=== PATIENT | male | born 1960 | race Caucasian/White ===

== ENCOUNTER 2016-10-01 06:06 | Day surgery (SDC) | payer MEDICARE ==
[~2016-10-01 06:06] MED LIST: Lactated Ringers 1,000 ML IV SCH
[2016-10-01] MEDS ORDERED: Ketamine HCl 50 MG/ML IV ONE (06:07)
[2016-10-01] MEDS ORDERED: DIPRIVAN 200 MG/20 ML IV ONE (06:07)
--- NOTE | 2016-10-01 08:56 | OP ---
SURGERY DATE/TIME: 10/01/2016815 PREOPERATIVE DIAGNOSIS: Screening exam. POSTOPERATIVE DIAGNOSIS: Normal colon. PROCEDURE: Colonoscopy. SURGEON: Dr. Woodson. ANESTHESIA: Medications given by anesthesia department. HISTORY: The patient is a 56 year-old white male patient presenting now for colonoscopic examination for surveillance. He previously had a colonoscopy seven years ago which had polyps. The patient was reappraised of the risks of the procedure including the risk of perforation, phlebitis, untoward reaction to medication, bleeding and missed lesions. The patient verbalized her understanding and desired to have the procedure performed. DESCRIPTION OF PROCEDURE: The patient was given the medications by the anesthesia department. He had continuous pulse oximetry, ECG monitoring, intermittent blood pressure monitoring and tidal CO2 monitoring during the examination. He was placed in the left lateral decubitus position. A digital rectal examination was performed and revealed normal anal sphincter tone and no masses and normal prostate. The flexible Olympus pediatric colonoscope was used to intubate the rectum. A view of the colon was developed sequentially to the cecum. Upon insertion and withdrawal, including a retroflex view in the rectum, no mucosal lesions were encountered. The scope was removed from the patient who tolerated the procedure well and was sent back to OP recovery in good condition. The prep was noted to be fair to good.
[2016-10-01 09:39] VITALS: BP 131/60; PULSE 56; O2SAT 98
== END 2016-10-01 09:41 | disposition home or self-care (01) ==
LOC: SDC 06:06
PROVIDERS: ATTEND Family Medicine
PROC: 0DJD8ZZ Inspection of Lower Intestinal Tract, Via Natural or Artificial Opening Endoscopic (ICD-10-PCS; principal; 2016-10-01)
DX: Z12.11 Encounter for screening for malignant neoplasm of colon (principal); Z86.010 Personal history of colon polyps
CPT/HCPCS: 00810; J2704

== ENCOUNTER 2018-05-22 15:49 | Emergency (ER) | payer MEDICARE ==
--- NOTE | 2018-05-22 16:47 | ERPHSYRPT ---
- History of Present Illness Time Seen by Provider: 05/22/18 16:37 Historian: patient Exam Limitations: no limitations Patient Subjective Stated Complaint: Pt states "I have been having lower right abdominal pain and diarrhea since last friday. I went to Dr. Douglas office today and they checked me out and wanted to do a CT but after they called my insurance company they said I should just go to the ED." Triage Nursing Assessment: PT presented alert and oriented X 3, skin pwd. PT ambulates with an upright steady gait, able to speak in clear full sentences. pt in no apparent respiratory distress. Physician History: 58-year-old white male with history of COPD, myocardial infarction, rheumatoid arthritis, Patient arrives with complaint of right lower quadrant painand epigastric pain and diarrhea symptoms since Friday he states he has not been having vomiting he does state she's been having multiple episodes of diarrhea. Past medical history includes COPD, myocardial infarction, rheumatoid arthritis , patient states he only has one kidney. Past surgical history includes bifemoral bypass. Social history is negative. Timing/Duration: week(s) (1 week) Activities at Onset: none Quality: aching, cramping Abdominal Pain Onset Location: RLQ, epigastric Severity of Pain-Max: moderate Severity of Pain-Current: mild Modifying Factors: Improves With: nothing Associated Symptoms: diarrhea, No back, No chest pain, No diaphoresis, No fever/ chills, No fatigue, No headache, No heartburn, No loss of appetite, No nausea, No neck pain, No rash, No shortness of breath, No syncope, No testicular pain, No vomiting, No weakness Previous symptoms: no prior history Allergies/Adverse Reactions: acetaminophen [From Vicodin] Allergy (Severe, Verified 09/30/16 14:38) Rash hydrocodone [From Vicodin] Allergy (Severe, Verified 09/30/16 14:38) Rash oxycodone [From Percocet] Allergy (Severe, Verified 09/30/16 14:38) Rash Sulfa (Sulfonamide Antibiotics) Allergy (Severe, Verified 09/30/16 14:38) Rash Home Medications: Aspirin 81 gm Chew [Baby Aspirin 81 mg Chew] 81 mg PO DAILY 09/30/16 [ History] Bupropion HCl 150 mg Sr [Wellbutrin SR 150 MG] 150 mg PO BID 05/22/18 [ History] Cilostazol 50 mg PO DAILY 05/22/18 [History] Clopidogrel Bisulfate [Clopidogrel] 75 mg PO DAILY 05/22/18 [History] Glimepiride 1 mg PO DAILY 05/22/18 [History] Lisinopril/Hydrochlorothiazide [Lisinopril-Hctz 20-12.5 mg Tab] 1 tab PO DAILY 05/22/18 [History] Metoprolol Tartrate 25 mg PO DAILY 05/22/18 [History] Hx Tetanus, Diphtheria Vaccination/Date Given: No Hx Influenza Vaccination/Date Given: No Hx Pneumococcal Vaccination/Date Given: No Immunizations Up to Date: Yes - Review of Systems Constitutional: No Fever, No Chills Eyes: No Symptoms Ears, Nose, & Throat: No Symptoms Respiratory: No Cough, No Dyspnea Cardiac: No Chest Pain, No Edema, No Syncope Abdominal/Gastrointestinal: Abdominal Pain, Diarrhea, No Nausea, No Vomiting, No Constipation, No Hematemesis, No Hematochezia, No Melena, No Dysphagia, No Appetite Changes Genitourinary Symptoms: No Dysuria Musculoskeletal: No Back Pain, No Neck Pain Skin: No Rash Neurological: No Dizziness, No Focal Weakness, No Sensory Changes Psychological: No Symptoms Endocrine: No Symptoms All Other Systems: Reviewed and Negative - Past Medical History Pertinent Past Medical History: Yes Neurological History: No Pertinent History ENT History: No Pertinent History Cardiac History: Myocardial Infarction ([place]) Respiratory History: COPD Endocrine Medical History: No Pertinent History Musculoskeletal History: Rheumatoid Arthritis GI Medical History: No Pertinent History History: Other Psycho-Social History: No Pertinent History Male Reproductive Disorders: No Pertinent History Other Medical History: pt was born with one kidney - Past Surgical History Past Surgical History: Yes Neuro Surgical History: No Pertinent History Cardiac: Vascular Surgery Respiratory: No Pertinent History Gastrointestinal: No Pertinent History Genitourinary: No Pertinent History Musculoskeletal: No Pertinent History Male Surgical History: No Pertinent History Other Surgical History: bi-fem bipass - Social History Smoking Status: Former smoker Exposure to second hand smoke: Yes Drug Use: none Patient Lives Alone: No - Nursing Vital Signs Nursing Vital Signs: Initial Vital Signs Temperature 98.1 F 05/22/18 15:55 Pulse Rate 80 05/22/18 15:55 Respiratory Rate 18 05/22/18 15:55 Blood Pressure 147/81 05/22/18 15:55 O2 Sat by Pulse Oximetry 96 05/22/18 15:55 Pain Scale Pain Intensity 4 - Physical Exam General Appearance: mild distress, alert Eye Exam: PERRL/EOMI, eyes nml inspection Ears, Nose, Throat Exam: normal ENT inspection, pharynx normal, moist mucous membranes Neck Exam: normal inspection, non-tender, supple, full range of motion Respiratory Exam: normal breath sounds, lungs clear, No respiratory distress Cardiovascular Exam: regular rate/rhythm, normal heart sounds, capillary refill <2 sec Gastrointestinal/Abdomen Exam: soft, normal bowel sounds, tenderness (right lower quadrant and middle abdomen and suprapubic tenderness with palpation), No distention, No mass, No guarding, No ecchymosis, No pulsatile mass, No rebound, No hernia, No hepatomegaly, No organomegaly, No splenomegaly Back Exam: normal inspection, normal range of motion, No CVA tenderness, No vertebral tenderness Extremity Exam: normal inspection, normal range of motion, pelvis stable Neurologic Exam: alert, oriented x 3, cooperative, 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 Colonic diverticulosis without diverticulitis 2. Absent left kidney either congenital versus total nephrectomy 3. Urinary bladder wall thickening either incomplete distention versus cystitis, correlate clinically. 4. Incidental heavy scattered arteriosclerotic disease with multiple stent grafts. Lack of IV contrast precludes evaluation of stent graft atency. 5. 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 grade 2 spondylolisthesis) Ordered Tests: Active Orders 24 hr Category Date Time Status IV Insertion STAT Care 05/22/18 17:50 Active ABDOMEN AND PELVIS W/0 CONTRAS [CT] Stat Exams 05/22/18 17:02 Completed AMYLASE Stat Lab 05/22/18 18:10 Completed CBC W DIFF Stat Lab 05/22/18 18:10 Completed CMP Stat Lab 05/22/18 18:10 Completed LIPASE Stat Lab 05/22/18 18:10 Completed UA W/RFX UR CULTURE Stat Lab 05/22/18 18:20 Completed Medication Summary Discontinued Medications Generic Name Dose Route Start Last Admin Trade Name Woo PRN Reason Stop Dose Admin Sodium Chloride 1,000 mls @ 999 mls/hr 05/22/18 17:50 05/22/18 18:13 Sodium Chloride 0.9% 1000 Ml IV 05/22/18 18:50 999 mls/hr .Q1H1M STA Administration Sodium Chloride Confirm 05/22/18 18:09 Sodium Chloride 0.9% 1000 Ml Administered 05/22/18 18:10 Dose 1,000 mls @ ud .ROUTE .STK-MED ONE Morphine Sulfate 4 mg 05/22/18 18:58 Morphine Sulfate 4 Mg Inj IV 05/22/18 18:59 STAT ONE Ondansetron HCl 4 mg 05/22/18 18:58 Zofran 4 Mg/2 Ml Vial IV 05/22/18 18:59 STAT ONE Lab/Rad Data: Laboratory Result Diagrams 05/22/18 18:10 05/22/18 18:10 Laboratory Results 05/22/18 05/22/18 05/22/18 Range/Units 18:20 18:10 18:10 WBC 9.9 (4.0-10.5) K/mm3 RBC 5.46 (4.1-5.6) M/mm3 Hgb 16.2 (12.5-18.0) gm/dl Hct 47.4 (42-50) % MCV 86.8 (78-100) fl MCH 29.7 (26-32) pg MCHC 34.2 (32-36) g/dl RDW 13.9 (11.5-14.0) % Plt Count 284 (150-450) K/mm3 MPV 9.2 (6-9.5) fl Gran % 60.7 (36.0-66.0) % Eos # (Auto) 0.13 (0-0.5) Absolute Lymphs (auto) 2.92 (1.0-4.6) Absolute Monos (auto) 0.78 (0.0-1.3) Lymphocytes % 29.6 (24.0-44.0) % Monocytes % 7.9 (0.0-12.0) % Eosinophils % 1.3 (0.00-5.0) % Basophils % 0.5 (0.0-0.4) % Absolute Granulocytes 5.97 (1.4-6.9) Basophils # 0.05 (0-0.4) Sodium 140 (137-145) mmol/L Potassium 4.3 (3.5-5.1) mmol/L Chloride 104 (98-107) mmol/L Carbon Dioxide 27 (22-30) mmol/L Anion Gap 13.2 (5-15) MEQ/L BUN 14 (9-20) mg/dL Creatinine 1.03 (0.66-1.25) mg/dL Estimated GFR > 60.0 ML/MIN Glucose 69 L (74-106) mg/dL Calcium 10.2 (8.4-10.2) mg/dL Total Bilirubin 0.30 (0.2-1.3) mg/dL AST 22 (17-59) U/L ALT 16 (0-50) U/L Alkaline Phosphatase 89 (38-126) U/L Serum Total Protein 8.0 (6.3-8.2) g/dL Albumin 4.5 (3.5-5.0) g/dL Amylase 114 H (30-110) U/L Lipase 95 (23-300) U/L Urine Color STRAW (YELLOW) Urine Appearance CLEAR (CLEAR) Urine pH 5.0 (5-6) Ur Specific [place] 1.006 (1.005-1.025) Urine Protein NEGATIVE (Negative) Urine Ketones NEGATIVE (NEGATIVE) Urine Blood NEGATIVE (0-5) Roger/ul Urine Nitrite NEGATIVE (NEGATIVE) Urine Bilirubin NEGATIVE (NEGATIVE) Urine Urobilinogen NEGATIVE (0-1) mg/dL Ur Leukocyte Esterase NEGATIVE (NEGATIVE) Urine WBC (Auto) NONE (0-5) /HPF Urine RBC (Auto) NONE (0-2) /HPF U Epithel Cells (Auto) NONE (FEW) /HPF Urine Bacteria (Auto) NONE (NEGATIVE) /HPF Urine Culture Reflexed NO (NO) Urine Glucose NEGATIVE (NEGATIVE) mg/dL - Progress Progress: improved Progress Note: 05/22/18 19:00 58-year-old white male arrives with complaint of lower abdominal pain right lower suprapubic symptoms going on for several days. He was seen by Dr. Larios and sent to the emergency room. Patient with essentially normal CBC chemistry and urine. Patient does not appear to be in acute distress he does state a been having some diarrhea CT of the abdomen and pelvis remarkable for colonic diverticulosis without diverticulitis, 2. Absent left kidney either congenital versus total nephrectomy 3. Urinary bladder wall thickening either incomplete distention versus cystitis correlate clinically 4. Incidental heavy scattered arteriosclerotic disease with multiple stent grafts. Lack of IV contrast precludes evaluation of stent graft patency 5 multiple degenerative spondylolisthesis at L5 spondylolysis and grade 2 spondylolisthesis/ Patient does not appear to be in no severe distress at this time. I briefly discussed case with Dr. Russell will go ahead and give patient morphine 4 mg IV Zofran is receiving IV fluids. Will plan to discharge patient with follow-up with his family doctor is return for acute distress or for severe symptoms. I will avoid oral analgesics because of the fact the patient lists both hydrocodone as well as oxycodone as his allergies. . - Departure Departure Disposition: Home Clinical Impression: Abdominal pain Qualifiers: Abdominal location: right lower quadrant Qualified Code(s): R10.31 - Right lower quadrant pain Condition: Fair Critical Care Time: No Referrals: PERLA LARIOS MD [Primary Care Provider] - Instructions: Acute Abdomen (Belly Pain), Adult (DC) Additional Instructions: Return home. Plenty of fluids. Clear fluids only 24-48 hours if abdominal pain Imodium [id number] as directed as needed. Follow-up with Dr. Larios. Return for acute distress or for severe symptoms.
--- NOTE | 2018-05-22 17:28 | XRAY ---
Indication: Nausea, diarrhea, weight loss. Multiple contiguous axial images obtained through the abdomen and pelvis without contrast as ordered. Comparison: None Lung bases demonstrates pulmonary emphysema with mild bibasilar dependent atelectasis. No infiltrate or effusion. Heart is not enlarged. Tiny right infrahilar calcified nodes. Noncontrasted stomach and bowel loops appear nonobstructed. Normal appendix. Mild scattered colonic diverticulosis. Absent left kidney either congenital versus total nephrectomy. No free fluid/air. Mild urinary bladder wall thickening either incomplete distention versus cystitis. Remaining liver, gallbladder, pancreas, spleen, adrenal glands, right kidney, right ureter, and bladder appear unremarkable for noncontrast exam. Heavy scattered aortoiliac ossifications without AAA. Right common iliac artery, bifemoral, and right common femoral stent grafts. Osseous structures demonstrates moderate multilevel degenerative spondylosis throughout the thoracolumbar spine. Also bilateral L5 spondylolysis with 10 mm spondylolisthesis. Impression: 1. Colonic diverticulosis without diverticulitis. 2. Absent left kidney either congenital versus total nephrectomy. 3. Urinary bladder wall thickening either incomplete distention versus cystitis. Correlate clinically. 4. Incidental heavy scattered arteriosclerotic disease with multiple stent grafts. Lack of IV contrast precludes evaluation of stent graft patency. 5. Multilevel degenerative spondylosis and L5 spondylolysis with grade 2 spondylolisthesis. CTDI 19.90
[2018-05-22] MEDS ORDERED: Sodium Chloride 0.9% 1000 ML 1,000 ML IV STA (17:50)
[2018-05-22] MEDS ORDERED: Sodium Chloride 0.9% 1000 ML 1,000 ML ONE (18:09)
[2018-05-22 18:31] LABS: BASOPHIL % 0.5 % (0.0-0.4); Basophil (Absolute #) 0.05 (0-0.4); Eosinophil % 1.3 % (0.00-5.0); Eosinophil (Absolute #) 0.13 (0-0.5); Granulocyte Absolute (ANC) 5.97 (1.4-6.9); Granulocytes % 60.7 % (36.0-66.0); Hematocrit 47.4 % (42-50); Hemoglobin 16.2 gm/dl (12.5-18.0); Lymphocyte (Absolute #) 2.92 (1.0-4.6); Lymphocytes % 29.6 % (24.0-44.0); Mean Cell Volume 86.8 fl (78-100); Mean Corpuscular Hemoglobin 29.7 pg (26-32); Mean Corpuscular Hgb Concent. 34.2 g/dl (32-36); Mean Platelet Volume 9.2 fl (6-9.5); Monocyte (Absolute #) 0.78 (0.0-1.3); Monocytes % 7.9 % (0.0-12.0); Platelet Count 284 K/mm3 (150-450); Red Blood Count 5.46 M/mm3 (4.1-5.6); Red Cell Distribution Width 13.9 % (11.5-14.0); White Blood Count 9.9 K/mm3 (4.0-10.5)
[2018-05-22 18:36] LABS: Appearance CLEAR (CLEAR); Bilirubin NEGATIVE (NEGATIVE); Blood NEGATIVE Ery/ul (0-5); Glucose NEGATIVE (NEGATIVE); Ketones NEGATIVE (NEGATIVE); Leukocyte Esterase NEGATIVE (NEGATIVE); Nitrite NEGATIVE (NEGATIVE); Protein,Urine Dip NEGATIVE (Negative); Specific Gravity 1.006 (1.005-1.025); Urobilinogen NEGATIVE mg/dL (0-1)
[2018-05-22 18:42] LABS: ALBUMIN 4.5 g/dL (3.5-5.0); ALKALINE PHOSPHATASE 89 U/L (38-126); AMYLASE 114 U/L (30-110); ANION GAP 13.2 MEQ/L (5-15); BLOOD UREA NITROGEN 14 mg/dL (9-20); CHLORIDE 104 mmol/L (98-107); Calcium 10.2 mg/dL (8.4-10.2); Carbon Dioxide 27 mmol/L (22-30); Creatinine 1 1.03 mg/dL (0.66-1.25); Glucose 69 mg/dL (74-106); LIPASE 95 U/L (23-300); Potassium 4.3 mmol/L (3.5-5.1); SGOT/AST 22 U/L (17-59); SGPT/ALT 16 U/L (0-50); SODIUM 140 mmol/L (137-145)
[2018-05-22] MEDS ORDERED: Zofran 4 MG/2 ML VIAL IV ONE (18:58)
[2018-05-22] MEDS ORDERED: MORPHINE SULFATE 4 MG INJ IV ONE (18:58)
[2018-05-22] MEDS ORDERED: MORPHINE SULFATE 4 MG INJ ONE (19:11)
[2018-05-22] MEDS ORDERED: Zofran 4 MG/2 ML VIAL ONE (19:11)
[2018-05-22 19:47] VITALS: BP 120/74; PULSE 88; O2SAT 98
== END 2018-05-22 19:48 | disposition home or self-care (01) ==
LOC: ED 15:49
DX: R10.31 Right lower quadrant pain (principal); J44.9 Chronic obstructive pulmonary disease, unspecified; I25.2 Old myocardial infarction; M06.9 Rheumatoid arthritis, unspecified; Z79.899 Other long term (current) drug therapy
CPT/HCPCS: 36000; 36415; 74176; 80053; 81001; 82150; 83690; 85025; 96360; 96374; 96375; 99284; J2270; J2405

== ENCOUNTER 2019-02-13 17:31 | Observation (INO) | payer MEDICARE ==
[2019-02-13] MEDS ORDERED: Zofran 4 MG/2 ML VIAL IV ONE (17:45)
[2019-02-13] MEDS ORDERED: Sodium Chloride 0.9% 1000 ML 1,000 ML IV STA (17:45)
--- NOTE | 2019-02-13 17:51 | ERPHSYRPT ---
- History of Present Illness Time Seen by Provider: 02/13/19 17:49 Historian: patient, family Exam Limitations: no limitations Patient Subjective Stated Complaint: pt here for cough,aches,nausea, loose stools for 4 days now, vomited x3 today, 4 loose stools, Triage Nursing Assessment: pt alert, resp easy, skin w/d/p. abd soft coughing up green sputum,no edema noted Physician History: pt here for cough,aches,nausea, loose stools for 4 days now, vomited x3 today, 4 loose stools, Timing/Duration: day(s) (3-4 days) Associated Symptoms: fever/chills, fatigue, headache, vomiting Previous symptoms: no prior history Allergies/Adverse Reactions: acetaminophen [From Vicodin] Allergy (Severe, Verified 02/13/19 17:44) Rash hydrocodone [From Vicodin] Allergy (Severe, Verified 02/13/19 17:44) Rash oxycodone [From Percocet] Allergy (Severe, Verified 02/13/19 17:44) Rash Sulfa (Sulfonamide Antibiotics) Allergy (Severe, Verified 02/13/19 17:44) Rash Home Medications: Aspirin 81 gm Chew [Baby Aspirin 81 mg Chew] 81 mg PO DAILY 09/30/16 [ History] Bupropion HCl 150 mg Sr [Wellbutrin SR 150 MG] 150 mg PO BID 05/22/18 [ History] Cilostazol 50 mg PO DAILY 05/22/18 [History] Clopidogrel Bisulfate [Clopidogrel] 75 mg PO DAILY 05/22/18 [History] Glimepiride 1 mg PO DAILY 05/22/18 [History] Lisinopril/Hydrochlorothiazide [Lisinopril-Hctz 20-12.5 mg Tab] 1 tab PO DAILY 05/22/18 [History] Metoprolol Tartrate 25 mg PO DAILY 05/22/18 [History] Hx Tetanus, Diphtheria Vaccination/Date Given: No Hx Influenza Vaccination/Date Given: No Hx Pneumococcal Vaccination/Date Given: No Immunizations Up to Date: Yes - Review of Systems Constitutional: Fever, Chills, Malaise Eyes: No Symptoms Ears, Nose, & Throat: No Symptoms, Sinus Drainage Respiratory: Cough, No Dyspnea Cardiac: No Chest Pain, No Edema, No Syncope Abdominal/Gastrointestinal: Abdominal Pain, Nausea, Vomiting, No Diarrhea Genitourinary Symptoms: No Dysuria Musculoskeletal: No Back Pain, No Neck Pain Skin: No Rash Neurological: No Dizziness, No Focal Weakness, No Sensory Changes Psychological: No Symptoms Endocrine: No Symptoms All Other Systems: Reviewed and Negative - Past Medical History Pertinent Past Medical History: Yes Neurological History: No Pertinent History ENT History: No Pertinent History Cardiac History: Myocardial Infarction ([place]) Respiratory History: COPD Endocrine Medical History: No Pertinent History Musculoskeletal History: Rheumatoid Arthritis GI Medical History: No Pertinent History History: Other Psycho-Social History: No Pertinent History Male Reproductive Disorders: No Pertinent History Other Medical History: pt was born with one kidney - Past Surgical History Past Surgical History: Yes Neuro Surgical History: No Pertinent History Cardiac: Vascular Surgery Respiratory: No Pertinent History Gastrointestinal: No Pertinent History Genitourinary: No Pertinent History Musculoskeletal: No Pertinent History Male Surgical History: No Pertinent History Other Surgical History: bi-fem bipass - Social History Smoking Status: Former smoker Exposure to second hand smoke: No Drug Use: none Patient Lives Alone: No - Nursing Vital Signs Nursing Vital Signs: Initial Vital Signs Temperature 98.1 F 02/13/19 17:37 Pulse Rate 84 02/13/19 17:37 Respiratory Rate 20 02/13/19 17:37 Blood Pressure 116/65 02/13/19 17:37 O2 Sat by Pulse Oximetry 93 L 02/13/19 17:37 Pain Scale Pain Intensity 0 - Physical Exam General Appearance: no apparent distress, mild distress, alert Eye Exam: PERRL/EOMI, eyes nml inspection Ears, Nose, Throat Exam: normal ENT inspection, moist mucous membranes, pharyngeal erythema Neck Exam: normal inspection, non-tender, supple, full range of motion Respiratory Exam: wheezing, No respiratory distress Cardiovascular Exam: regular rate/rhythm, normal heart sounds Gastrointestinal/Abdomen Exam: soft, No tenderness, No mass Back Exam: normal inspection, normal range of motion, No CVA tenderness, No vertebral tenderness Extremity Exam: normal inspection, normal range of motion, pelvis stable Neurologic Exam: alert, oriented x 3, cooperative, normal mood/affect, nml cerebellar function, sensation nml, No motor deficits Skin Exam: normal color, warm, dry SpO2: 93 - Course Nursing assessment & vital signs reviewed: Yes Ordered Tests: Active Orders 24 hr Category Date Time Status AMYLASE Stat Lab 02/13/19 18:01 Completed CBC W DIFF Stat Lab 02/13/19 18:01 Completed CMP Stat Lab 02/13/19 18:01 Completed LIPASE Stat Lab 02/13/19 18:01 Completed Manual Differential NC Stat Lab 02/13/19 18:01 Completed Transfer Order Routine Transfer 02/13/19 Ordered Medication Summary Discontinued Medications Generic Name Dose Route Start Last Admin Trade Name Woo PRN Reason Stop Dose Admin Sodium Chloride 1,000 mls @ 999 mls/hr 02/13/19 17:45 02/13/19 17:56 Sodium Chloride 0.9% 1000 Ml IV 02/13/19 18:45 999 mls/hr .Q1H1M STA Administration Sodium Chloride Confirm 02/13/19 17:54 Sodium Chloride 0.9% 1000 Ml Administered 02/13/19 17:55 Dose 1,000 mls @ ud .ROUTE .STK-MED ONE Ondansetron HCl 4 mg 02/13/19 17:45 02/13/19 17:56 Zofran 4 Mg/2 Ml Vial IV 02/13/19 17:46 4 mg STAT ONE Administration Ondansetron HCl Confirm 02/13/19 17:54 Zofran 4 Mg/2 Ml Vial Administered 02/13/19 17:55 Dose 4 mg .ROUTE .STK-MED ONE Lab/Rad Data: Laboratory Result Diagrams 02/13/19 18:01 02/13/19 18:01 Laboratory Results 02/13/19 02/13/19 02/13/19 Range/Units 18:01 18:01 18:01 WBC 8.5 (4.0-10.5) K/mm3 RBC 5.24 (4.1-5.6) M/mm3 Hgb 15.5 (12.5-18.0) gm/dl Hct 42.6 (42-50) % MCV 81.3 (78-100) fl MCH 29.6 (26-32) pg MCHC 36.4 H (32-36) g/dl RDW 13.3 (11.5-14.0) % Plt Count 136 L (150-450) K/mm3 MPV 9.6 H (6-9.5) fl Sodium 125 L (137-145) mmol/L Potassium 3.8 (3.5-5.1) mmol/L Chloride 86 L (98-107) mmol/L Carbon Dioxide 23 (22-30) mmol/L Anion Gap 18.6 H (5-15) MEQ/L BUN 24 H (9-20) mg/dL Creatinine 1.28 H (0.66-1.25) mg/dL Estimated GFR > 60.0 ML/MIN Glucose 89 (74-106) mg/dL Calcium 8.8 (8.4-10.2) mg/dL Total Bilirubin 0.60 (0.2-1.3) mg/dL AST 74 H (17-59) U/L ALT 21 (0-50) U/L Alkaline Phosphatase 85 (38-126) U/L Serum Total Protein 8.0 (6.3-8.2) g/dL Albumin 4.4 (3.5-5.0) g/dL Amylase 102 (30-110) U/L Lipase 244 (23-300) U/L Influenza Type A Ag POSITIVE (NEGATIVE) Influenza Type B Ag NEGATIVE (NEGATIVE) RSV (PCR) NEGATIVE (Negative) - Progress Progress: unchanged Discussed with Dr.: Eriberto Dailey Counseled pt/family regarding: lab results, diagnosis, need for follow-up - Departure Departure Disposition: Observation Clinical Impression: Hyponatremia, Dehydration, Influenza A Abdominal pain Qualifiers: Abdominal location: generalized Qualified Code(s): R10.84 - Generalized abdominal pain Condition: Fair Critical Care Time: Yes Critical Care Time(excluding separately billable procedures): Critical 30-74 mins Referrals: PERLA LARIOS MD [Primary Care Provider] -
[2019-02-13] MEDS ORDERED: Zofran 4 MG/2 ML VIAL ONE (17:54)
[2019-02-13] MEDS ORDERED: Sodium Chloride 0.9% 1000 ML 1,000 ML ONE (17:54)
[2019-02-13 18:05] LABS: Hematocrit 42.6 % (42-50); Hemoglobin 15.5 gm/dl (12.5-18.0); Mean Cell Volume 81.3 fl (78-100); Mean Corpuscular Hemoglobin 29.6 pg (26-32); Mean Corpuscular Hgb Concent. 36.4 g/dl (32-36); Mean Platelet Volume 9.6 fl (6-9.5); Platelet Count 136 K/mm3 (150-450); Red Blood Count 5.24 M/mm3 (4.1-5.6); Red Cell Distribution Width 13.3 % (11.5-14.0); White Blood Count 8.5 K/mm3 (4.0-10.5)
[2019-02-13 18:16] LABS: ALBUMIN 4.4 g/dL (3.5-5.0); ALKALINE PHOSPHATASE 85 U/L (38-126); AMYLASE 102 U/L (30-110); ANION GAP 18.6 MEQ/L (5-15); BLOOD UREA NITROGEN 24 mg/dL (9-20); CHLORIDE 86 mmol/L (98-107); Calcium 8.8 mg/dL (8.4-10.2); Carbon Dioxide 23 mmol/L (22-30); Creatinine 1 1.28 mg/dL (0.66-1.25); Glucose 89 mg/dL (74-106); LIPASE 244 U/L (23-300); Potassium 3.8 mmol/L (3.5-5.1); SGOT/AST 74 U/L (17-59); SGPT/ALT 21 U/L (0-50); SODIUM 125 mmol/L (137-145)
[2019-02-13 18:45] LABS: INFLUENZA A POSITIVE (NEGATIVE); INFLUENZA B NEGATIVE (NEGATIVE); RESPIRATORY SYNCTIAL VIRUS NEGATIVE (Negative)
[2019-02-13 18:51] LABS: ATYPICAL LYMPHS 3 %; BAND 4 % (0.0-2.0); Lymphocytes 17 % (24-44); Monocyte 3 % (0.0-12.0); Neutrophils 73 % (36.-66.); Platelet Estimate NORMAL (NORMAL); Total Cells Counted 100
[2019-02-13] MEDS ORDERED: TYLENOL 325 MG PO PRN (20:06)
[2019-02-13] MEDS ORDERED: NovoLOG Insulin SQ PRN (20:06)
[2019-02-13] MEDS ORDERED: Zofran 4 MG/2 ML VIAL IV PRN (20:06)
[2019-02-13] MEDS: Sodium Chloride 0.9% W/ 20 mEq KCl/LITER 1,000 ML IV SCH (21:08)
[2019-02-13] MEDS: Tamiflu 75MG Capsule PO SCH (21:08)
[2019-02-13] MEDS: Tessalon Perles 100 MG PO PRN (21:41)
[2019-02-14] MEDS: Tessalon Perles 100 MG PO PRN ×2 (05:52→21:07)
[2019-02-14 06:27] LABS: Hematocrit 37.1 % (42-50); Hemoglobin 13.3 gm/dl (12.5-18.0); Mean Cell Volume 82.3 fl (78-100); Mean Corpuscular Hemoglobin 29.5 pg (26-32); Mean Corpuscular Hgb Concent. 35.8 g/dl (32-36); Platelet Count 136 K/mm3 (150-450); Red Blood Count 4.51 M/mm3 (4.1-5.6); Red Cell Distribution Width 13.2 % (11.5-14.0); White Blood Count 6.7 K/mm3 (4.0-10.5)
[2019-02-14 06:42] LABS: ANION GAP 13.2 MEQ/L (5-15); BLOOD UREA NITROGEN 13 mg/dL (9-20); CHLORIDE 92 mmol/L (98-107); Calcium 7.4 mg/dL (8.4-10.2); Carbon Dioxide 23 mmol/L (22-30); Creatinine 1 0.98 mg/dL (0.66-1.25); Glucose 82 mg/dL (74-106); Potassium 3.8 mmol/L (3.5-5.1); SODIUM 125 mmol/L (137-145)
--- NOTE | 2019-02-14 07:26 | PCM.HP ---
History of Present Illness - Chief Complaint Chief Complaint: fever, abdominal pain, cough, for 3 days History of Present Illness: is a 59 year old male Came to the emergency room with complaining of generalized abdominal pain, nausea, vomiting, diarrhea, chest congestion, fever , and generalized body ache for last 2-3 days. - Review of Systems Constitutional: Fever, Chills Eyes: No Symptoms Ears, Nose, & Throat: No Symptoms Respiratory: Cough, No Short Of Breath Cardiac: No Chest Pain, No Edema, No Syncope Abdominal/Gastrointestinal: Abdominal Pain, Nausea, Vomiting, Diarrhea Genitourinary Symptoms: No Dysuria Musculoskeletal: No Back Pain, No Neck Pain Skin: No Rash Neurological: No Dizziness, No Focal Weakness, No Sensory Changes Psychological: No Symptoms Endocrine: No Symptoms Hematologic/Lymphatic: No Symptoms Immunological/Allergic: No Symptoms Medications & Allergies Home Medications: Home Medication List Aspirin 81 gm Chew [Baby Aspirin 81 mg Chew] 81 mg PO DAILY 09/30/16 [ History Confirmed 02/13/19] Bupropion HCl 150 mg Sr [Wellbutrin SR 150 MG] 150 mg PO DAILY 05/22/18 [ History Confirmed 02/13/19] Clopidogrel Bisulfate [Clopidogrel] 75 mg PO DAILY 05/22/18 [History Confirmed 02/13/19] Metoprolol Tartrate 25 mg PO DAILY 05/22/18 [History Confirmed 02/13/19] Calcium Carbonate/Vitamin D3 [Os-Joey 500+D Tablet] 1 each PO DAILY 02/13/19 [ History Confirmed 02/13/19] Metformin HCl [Glucophage Xr] 1 tab PO DAILY 02/13/19 [History Confirmed ] Rosuvastatin Calcium 10 mg PO DAILY 02/13/19 [History Confirmed 02/13/19] Allergies/Adverse Reactions: Allergies Allergy/AdvReac Type Severity Reaction Status Date / Time acetaminophen [From Vicodin] Allergy Severe Rash Verified 02/13/19 17:44 hydrocodone [From Vicodin] Allergy Severe Rash Verified 02/13/19 17:44 oxycodone [From Percocet] Allergy Severe Rash Verified 02/13/19 17:44 Sulfa (Sulfonamide Allergy Severe Rash Verified 02/13/19 17:44 Antibiotics) - Past Medical History Past Medical History: Yes Neurological History: No Pertinent History ENT History: No Pertinent History Cardiac History: Myocardial Infarction ([place]) Respiratory History: COPD Endocrine Medical History: No Pertinent History Musculoskelatal History: Rheumatoid Arthritis GI Medical History: No Pertinent History History: Other Pyscho-Social History: No Pertinent History Male Reproductive Disorders: No Pertinent History Comment: pt was born with one kidney - Past Surgical History Past Surgical History: Yes Neuro Surgical History: No Pertinent History Cardiac History: Vascular Surgery Respiratory Surgery: No Pertinent History GI Surgical History: No Pertinent History Genitourinary Surgical Hx: No Pertinent History Musculskeletal Surgical Hx: Amputation, Other Male Surgical History: No Pertinent History Other Surgical History: bi-fem bipass. left hand, finger amputation - Social History Smoking Status: Former smoker Exposure to second hand smoke: Yes Alcohol: None Drug Use: none - Physical Exam Vital Signs: Vital Signs - 24 hr Temp Pulse Resp BP Pulse Ox 02/14/19 07:18 98.1 F 86 20 117/68 97 02/14/19 03:49 99.9 F 91 H 18 112/59 93 L 02/13/19 23:47 99.1 F 84 18 128/60 92 L 02/13/19 20:06 98.1 F 94 H 121/60 02/13/19 19:07 94 H 16 121/60 90 L 02/13/19 18:48 93 L 02/13/19 18:37 91 H 18 126/67 91 L 02/13/19 17:37 98.1 F 84 20 116/65 93 L Oxygen-Last 24 hours O2 Percentage 2 Liters = 28% O2 Percentage 2 Liters = 28% O2 Percentage 2 Liters = 28% O2 Percentage 2 Liters = 28% O2 Percentage 2 Liters = 28% General Appearance: mild distress, alert Neurologic Exam: alert, oriented x 3, cooperative, normal mood/affect, nml cerebellar function, nml station & gait, sensation nml, No motor deficits Eye Exam: PERRL/EOMI, eyes nml inspection Ears, Nose, Throat Exam: normal ENT inspection, TMs normal, pharynx normal, moist mucous membranes Neck Exam: normal inspection, non-tender, supple, full range of motion Respiratory Exam: diminished breath sounds, wheezing, No respiratory distress Cardiovascular Exam: regular rate/rhythm, normal heart sounds, normal peripheral pulses Gastrointestinal/Abdomen Exam: soft, normal bowel sounds, No tenderness, No mass Back Exam: normal inspection, normal range of motion, No CVA tenderness, No vertebral tenderness Extremity Exam: normal inspection, normal range of motion, pelvis stable Skin Exam: normal color, warm, dry, No rash Lymphatic Exam: No adenopathy Results - Labs Lab/Micro Results: Accuchecks Date 02/13/19 Time 21:30 Accucheck Value: 82 Lab Results-Last 24 Hours 02/13/19 02/13/19 02/13/19 Range/Units 18:01 18:01 18:01 WBC 8.5 (4.0-10.5) K/mm3 RBC 5.24 (4.1-5.6) M/mm3 Hgb 15.5 (12.5-18.0) gm/dl Hct 42.6 (42-50) % MCV 81.3 (78-100) fl MCH 29.6 (26-32) pg MCHC 36.4 H (32-36) g/dl RDW 13.3 (11.5-14.0) % Plt Count 136 L (150-450) K/mm3 MPV 9.6 H (6-9.5) fl Segmented Neutrophils 73 H (36.-66.) % Band Neutrophils 4 H (0.0-2.0) % Lymphocytes (Manual) 17 L (24-44) % Monocytes (Manual) 3 (0.0-12.0) % Atypical Lymphocytes 3 % Platelet Estimate NORMAL (NORMAL) RBC Morphology NORMAL Sodium 125 L (137-145) mmol/L Potassium 3.8 (3.5-5.1) mmol/L Chloride 86 L (98-107) mmol/L Carbon Dioxide 23 (22-30) mmol/L Anion Gap 18.6 H (5-15) MEQ/L BUN 24 H (9-20) mg/dL Creatinine 1.28 H (0.66-1.25) mg/dL Estimated GFR > 60.0 ML/MIN Glucose 89 (74-106) mg/dL Lactic Acid (0.4-2.0) Calcium 8.8 (8.4-10.2) mg/dL Total Bilirubin 0.60 (0.2-1.3) mg/dL AST 74 H (17-59) U/L ALT 21 (0-50) U/L Alkaline Phosphatase 85 (38-126) U/L Serum Total Protein 8.0 (6.3-8.2) g/dL Albumin 4.4 (3.5-5.0) g/dL Amylase 102 (30-110) U/L Lipase 244 (23-300) U/L Influenza Type A Ag POSITIVE (NEGATIVE) Influenza Type B Ag NEGATIVE (NEGATIVE) RSV (PCR) NEGATIVE (Negative) 02/14/19 02/14/19 02/14/19 Range/Units 05:43 05:43 05:50 WBC 6.7 (4.0-10.5) K/mm3 RBC 4.51 (4.1-5.6) M/mm3 Hgb 13.3 (12.5-18.0) gm/dl Hct 37.1 L (42-50) % MCV 82.3 (78-100) fl MCH 29.5 (26-32) pg MCHC 35.8 (32-36) g/dl RDW 13.2 (11.5-14.0) % Plt Count 136 L (150-450) K/mm3 MPV 10.0 H (6-9.5) fl Segmented Neutrophils (36.-66.) % Band Neutrophils (0.0-2.0) % Lymphocytes (Manual) (24-44) % Monocytes (Manual) (0.0-12.0) % Atypical Lymphocytes % Platelet Estimate (NORMAL) RBC Morphology Sodium 125 L (137-145) mmol/L Potassium 3.8 (3.5-5.1) mmol/L Chloride 92 L (98-107) mmol/L Carbon Dioxide 23 (22-30) mmol/L Anion Gap 13.2 (5-15) MEQ/L BUN 13 (9-20) mg/dL Creatinine 0.98 (0.66-1.25) mg/dL Estimated GFR > 60.0 ML/MIN Glucose 82 (74-106) mg/dL Lactic Acid 0.7 (0.4-2.0) Calcium 7.4 L D (8.4-10.2) mg/dL Total Bilirubin (0.2-1.3) mg/dL AST (17-59) U/L ALT (0-50) U/L Alkaline Phosphatase (38-126) U/L Serum Total Protein (6.3-8.2) g/dL Albumin (3.5-5.0) g/dL Amylase (30-110) U/L Lipase (23-300) U/L Influenza Type A Ag (NEGATIVE) Influenza Type B Ag (NEGATIVE) RSV (PCR) (Negative) Accuchecks Date 02/13/19 Time 21:30 Accucheck Value: 82 Assessment/Plan (1) Influenza A Current Visit: Yes Status: Acute Assessment & Plan: Last Vital Signs Temp 98.1 F 02/14/19 07:18 Pulse 86 02/14/19 07:18 Resp 20 02/14/19 07:18 BP 117/68 02/14/19 07:18 Pulse Ox 97 02/14/19 07:18 Allergies acetaminophen [From Vicodin] Allergy (Severe, Verified 02/13/19 17:44) Rash hydrocodone [From Vicodin] Allergy (Severe, Verified 02/13/19 17:44) Rash oxycodone [From Percocet] Allergy (Severe, Verified 02/13/19 17:44) Rash Sulfa (Sulfonamide Antibiotics) Allergy (Severe, Verified 02/13/19 17:44) Rash Active Medications Acetaminophen (Tylenol 325 Mg) 650 mg PO Q4H PRN PRN PRN Reason: PAIN AND/OR FEVER Stop: 03/15/19 20:05 Benzonatate (Tessalon Perles 100 Mg) 100 mg PO TID PRN PRN PRN Reason: COUGH Stop: 03/15/19 21:25 Last Admin: 02/14/19 05:52 Dose: 100 mg Potassium Chloride/Sodium Chloride (Sodium Chloride 0.9% W/ 20 Meq Kcl/Liter) 1 ,000 mls @ 100 mls/hr IV .Q10H DANIELE Stop: 03/15/19 20:05 Last Admin: 02/13/19 21:08 Dose: 100 mls/hr Insulin Aspart (Novolog Insulin) 0 unit SQ UD PRN PRN Reason: HYPERGLYCEMIA Stop: 03/15/19 20:05 Ondansetron HCl (Zofran 4 Mg/2 Ml Vial) 4 mg IV Q6H PRN PRN PRN Reason: NAUSEA/VOMITING Stop: 03/15/19 20:05 Oseltamivir Phosphate (Tamiflu 75mg Capsule) 75 mg PO BID DANIELE Stop: 02/18/19 21:59 Last Admin: 02/13/19 21:08 Dose: 75 mg Pantoprazole Sodium (Protonix 40 Mg Iv) 40 mg IV Q24H10 DANIELE Stop: 03/16/19 09:59 Intake & Output 02/13/19 02/14/19 11:59 11:59 Intake Total 1507 Output Total 200 Balance 1307 Weight 76.5 kg Orders 02/13/19 20:06 Up Ad Kasia ROUTINE Accucheck ACHS Code Status Order ROUTINE IV Care Q6H Place in Observation ROUTINE Vitaliy Pedersen ROUTINE Acetaminophen 325 mg [Tylenol 325 mg] 650 mg PO Q4H PRN PRN Insulin Aspart [NovoLOG Insulin] See Dose Instructions SQ UD PRN NaCl 0.9% 1000 ml + KCl 20 Meq [Sodium Chloride 0.9% W/ 20 mEq KCl/LITER] 1,000 ml IV 100 mls/hr Ondansetron HCl 4 mg/2 ml [Zofran 4 MG/2 ML VIAL] 4 mg IV Q6H PRN PRN 02/13/19 22:00 Oseltamivir 75 mg [Tamiflu 75MG Capsule] 75 mg PO BID 02/13/19 Dinner 1800 Calorie ADA 02/14/19 10:00 Pantoprazole 40 mg [Protonix 40 mg IV] 40 mg IV Q24H10 Lab Tests 02/13/19 02/13/19 02/13/19 18:01 18:01 18:01 WBC 8.5 RBC 5.24 Hgb 15.5 Hct 42.6 MCV 81.3 MCH 29.6 MCHC 36.4 H RDW 13.3 Plt Count 136 L MPV 9.6 H Segmented Neutrophils 73 H Band Neutrophils 4 H Lymphocytes (Manual) 17 L Monocytes (Manual) 3 Atypical Lymphocytes 3 Platelet Estimate NORMAL RBC Morphology NORMAL Sodium 125 L Potassium 3.8 Chloride 86 L Carbon Dioxide 23 Anion Gap 18.6 H BUN 24 H Creatinine 1.28 H Estimated GFR > 60.0 Glucose 89 Lactic Acid Calcium 8.8 Total Bilirubin 0.60 AST 74 H ALT 21 Alkaline Phosphatase 85 Serum Total Protein 8.0 Albumin 4.4 Amylase 102 Lipase 244 Influenza Type A Ag POSITIVE Influenza Type B Ag NEGATIVE RSV (PCR) NEGATIVE 02/14/19 02/14/19 02/14/19 05:43 05:43 05:50 WBC 6.7 RBC 4.51 Hgb 13.3 Hct 37.1 L MCV 82.3 MCH 29.5 MCHC 35.8 RDW 13.2 Plt Count 136 L MPV 10.0 H Segmented Neutrophils Band Neutrophils Lymphocytes (Manual) Monocytes (Manual) Atypical Lymphocytes Platelet Estimate RBC Morphology Sodium 125 L Potassium 3.8 Chloride 92 L Carbon Dioxide 23 Anion Gap 13.2 BUN 13 Creatinine 0.98 Estimated GFR > 60.0 Glucose 82 Lactic Acid 0.7 Calcium 7.4 L D Total Bilirubin AST ALT Alkaline Phosphatase Serum Total Protein Albumin Amylase Lipase Influenza Type A Ag Influenza Type B Ag RSV (PCR) Code(s): J10.1 - FLU DUE TO OTH IDENT INFLUENZA VIRUS W OTH RESP MANIFEST (2) Abdominal pain Current Visit: Yes Status: Acute Qualifiers: Abdominal location: generalized Qualified Code(s): R10.84 - Generalized abdominal pain Code(s): R10.9 - UNSPECIFIED ABDOMINAL PAIN (3) Dehydration Current Visit: Yes Status: Acute Assessment & Plan: Chief Complaint Diagnosis hyponatremia, dehydration Allergies Allergy/AdvReac Type Severity Reaction Status Date / Time acetaminophen [From Vicodin] Allergy Severe Rash Verified 02/13/19 17:44 hydrocodone [From Vicodin] Allergy Severe Rash Verified 02/13/19 17:44 oxycodone [From Percocet] Allergy Severe Rash Verified 02/13/19 17:44 Sulfa (Sulfonamide Allergy Severe Rash Verified 02/13/19 17:44 Antibiotics) Vital Signs (Last 24 hours) Temp Pulse Resp BP Pulse Ox 02/14/19 07:18 98.1 F 86 20 117/68 97 02/14/19 03:49 99.9 F 91 H 18 112/59 93 L 02/13/19 23:47 99.1 F 84 18 128/60 92 L 02/13/19 20:06 98.1 F 94 H 121/60 02/13/19 19:07 94 H 16 121/60 90 L 02/13/19 18:48 93 L 02/13/19 18:37 91 H 18 126/67 91 L 02/13/19 17:37 98.1 F 84 20 116/65 93 L Home Medications Medication Instructions Recorded Confirmed Last Taken Type Calcium Carbonate/Vitamin D3 1 each PO DAILY 02/13/19 02/13/19 Unknown History [Os-Joey 500+D Tablet] Metformin HCl [Glucophage Xr] 1 tab PO DAILY 02/13/19 02/13/19 Unknown History Rosuvastatin Calcium 10 mg PO DAILY 02/13/19 02/13/19 Unknown History Current Medications Generic Name Dose Route Start Last Admin Trade Name Woo PRN Reason Stop Dose Admin Acetaminophen 650 mg 02/13/19 20:06 Tylenol 325 Mg PO 03/15/19 20:05 Q4H PRN PRN PAIN AND/OR FEVER Benzonatate 100 mg 02/13/19 21:26 02/14/19 05:52 Tessalon Perles 100 Mg PO 03/15/19 21:25 100 mg TID PRN PRN Administration COUGH Potassium Chloride/Sodium Chloride 1,000 mls @ 100 mls/hr 02/13/19 20:06 21:08 Sodium Chloride 0.9% W/ 20 Meq Kcl/Liter IV 03/15/19 20:05 100 mls/hr .Q10H DANIELE Administration Insulin Aspart 0 unit 02/13/19 20:06 Novolog Insulin SQ 03/15/19 20:05 UD PRN HYPERGLYCEMIA Ondansetron HCl 4 mg 02/13/19 20:06 Zofran 4 Mg/2 Ml Vial IV 03/15/19 20:05 Q6H PRN PRN NAUSEA/VOMITING Oseltamivir Phosphate 75 mg 02/13/19 22:00 02/13/19 21:08 Tamiflu 75mg Capsule PO 02/18/19 21:59 75 mg BID DANIELE Administration Pantoprazole Sodium 40 mg 02/14/19 10:00 Protonix 40 Mg Iv IV 03/16/19 09:59 Q24H10 DANIELE Discontinued Medications Generic Name Dose Route Start Last Admin Trade Name Woo PRN Reason Stop Dose Admin Sodium Chloride 1,000 mls @ 999 mls/hr 02/13/19 17:45 02/13/19 19:06 Sodium Chloride 0.9% 1000 Ml IV 02/13/19 18:45 Infused .Q1H1M STA Infusion Sodium Chloride Confirm 02/13/19 17:54 Sodium Chloride 0.9% 1000 Ml Administered 02/13/19 17:55 Dose 1,000 mls @ ud .ROUTE .STK-MED ONE Ondansetron HCl 4 mg 02/13/19 17:45 02/13/19 17:56 Zofran 4 Mg/2 Ml Vial IV 02/13/19 17:46 4 mg STAT ONE Administration Ondansetron HCl Confirm 02/13/19 17:54 Zofran 4 Mg/2 Ml Vial Administered 02/13/19 17:55 Dose 4 mg .ROUTE .STK-MED ONE Intake & Output (Last 24 hours) 02/11/19 02/12/19 02/13/19 02/14/19 11:59 11:59 11:59 11:59 Intake Total 1507 Output Total 200 Balance 1307 Weight 76.5 kg Laboratory Results (Last 24 hours) 02/14/19 02/14/19 02/14/19 05:50 05:43 05:43 WBC 6.7 RBC 4.51 Hgb 13.3 Hct 37.1 L MCV 82.3 MCH 29.5 MCHC 35.8 RDW 13.2 Plt Count 136 L MPV 10.0 H Segmented Neutrophils Band Neutrophils Lymphocytes (Manual) Monocytes (Manual) Atypical Lymphocytes Platelet Estimate RBC Morphology Sodium 125 L Potassium 3.8 Chloride 92 L Carbon Dioxide 23 Anion Gap 13.2 BUN 13 Creatinine 0.98 Estimated GFR > 60.0 Glucose 82 Lactic Acid 0.7 Calcium 7.4 L D Total Bilirubin AST ALT Alkaline Phosphatase Serum Total Protein Albumin Amylase Lipase Influenza Type A Ag Influenza Type B Ag RSV (PCR) 02/13/19 02/13/19 02/13/19 18:01 18:01 18:01 WBC 8.5 RBC 5.24 Hgb 15.5 Hct 42.6 MCV 81.3 MCH 29.6 MCHC 36.4 H RDW 13.3 Plt Count 136 L MPV 9.6 H Segmented Neutrophils 73 H Band Neutrophils 4 H Lymphocytes (Manual) 17 L Monocytes (Manual) 3 Atypical Lymphocytes 3 Platelet Estimate NORMAL RBC Morphology NORMAL Sodium 125 L Potassium 3.8 Chloride 86 L Carbon Dioxide 23 Anion Gap 18.6 H BUN 24 H Creatinine 1.28 H Estimated GFR > 60.0 Glucose 89 Lactic Acid Calcium 8.8 Total Bilirubin 0.60 AST 74 H ALT 21 Alkaline Phosphatase 85 Serum Total Protein 8.0 Albumin 4.4 Amylase 102 Lipase 244 Influenza Type A Ag POSITIVE Influenza Type B Ag NEGATIVE RSV (PCR) NEGATIVE Orders (Last 24 hours) Category Date Time Status Up Ad Kasia ROUTINE Activity 02/13/19 20:06 Active Accucheck ACHS Care 02/13/19 20:06 Active Code Status Order ROUTINE Care 02/13/19 20:06 Active IV Care Q6H Care 02/13/19 20:06 Active Oxygen-ED Only Nasal Cannula 2 lpm Care 02/13/19 19:[address] in Observation ROUTINE Care 02/13/19 20:06 Active Vitaliy Pedersen ROUTINE Care 02/13/19 20:06 Active 1800 Calorie ADA Diet 02/13/19 Dinner Active AMYLASE Stat Lab 02/13/19 18:01 Completed BMP AM.LAB Lab 02/14/19 05:43 Completed CBC W DIFF AM.LAB Lab 02/14/19 05:43 Completed CBC W DIFF Stat Lab 02/13/19 18:01 Completed CMP Stat Lab 02/13/19 18:01 Completed LIPASE Stat Lab 02/13/19 18:01 Completed Lactic Acid AM.LAB Lab 02/14/19 05:50 Completed Manual Differential NC Routine Lab 02/14/19 05:43 Completed Manual Differential NC Stat Lab 02/13/19 18:01 Completed Respiratory Panel Stat Lab 02/13/19 18:01 Completed Acetaminophen 325 mg [Tylenol 325 mg] Med 02/13/19 20:06 Active 650 mg PO Q4H PRN PRN Benzonatate 100 mg [Tessalon Perles 100 MG] Med 02/13/19 21:26 Active 100 mg PO TID PRN PRN Insulin Aspart [NovoLOG Insulin] Med 02/13/19 20:06 Active See Dose Instructions SQ UD PRN NaCl 0.9% 1000 ml + KCl 20 Meq [Sodium Chloride 0.9% W/ Med 02/13/19 20:06 Active 20 mEq KCl/LITER] 1,000 ml IV 100 mls/hr NaCl 0.9% 1000 ml [Sodium Chloride 0.9% 1000 ML] 1,000 Med 02/13/19 17:54 Discontinued ml .ROUTE UD NaCl 0.9% 1000 ml [Sodium Chloride 0.9% 1000 ML] 1,000 Med 02/13/19 17:45 Discontinued ml IV 999 mls/hr Ondansetron HCl 4 mg/2 ml [Zofran 4 MG/2 ML VIAL] Med 02/13/19 17:54 Discontinued 4 mg .ROUTE .STK-MED ONE Ondansetron HCl 4 mg/2 ml [Zofran 4 MG/2 ML VIAL] Med 02/13/19 20:06 Active 4 mg IV Q6H PRN PRN Ondansetron HCl 4 mg/2 ml [Zofran 4 MG/2 ML VIAL] Med 02/13/19 17:45 Discontinued 4 mg IV STAT ONE Oseltamivir 75 mg [Tamiflu 75MG Capsule] Med 02/13/19 22:00 Active 75 mg PO BID Pantoprazole 40 mg [Protonix 40 mg IV] Med 02/14/19 10:00 Active 40 mg IV Q24H10 Patient Care Notes (Last 24 hours) 02/13/19 21:30 (created 02/13/19 23:56) Nursing Note by Michelle Khanna Patient requesting cough suppressant. Received new order from Dr Russell for Tessalon Perlpatrick 1 cap Q8H PRN. Initialized on 02/13/19 23:56 - END OF NOTE Code(s): E86.0 - DEHYDRATION (4) Hyponatremia Current Visit: Yes Status: Acute Code(s): E87.1 - HYPO-OSMOLALITY AND HYPONATREMIA
[2019-02-14] MEDS: Sodium Chloride 0.9% W/ 20 mEq KCl/LITER 1,000 ML IV SCH ×2 (07:35→19:53)
[2019-02-14 07:58] LABS: ATYPICAL LYMPHS 1 %; BAND 1 % (0.0-2.0); Lymphocytes 23 % (24-44); Monocyte 8 % (0.0-12.0); Neutrophils 67 % (36.-66.); Platelet Estimate DECREASED (NORMAL); Total Cells Counted 100
[2019-02-14] MEDS: PROTONIX 40 MG IV IV SCH (09:37)
[2019-02-14] MEDS: Lopressor 25MG Tab PO SCH (09:40)
[2019-02-14] MEDS: ECOTRIN 81 MG PO SCH (09:41)
[2019-02-14] MEDS: Tamiflu 75MG Capsule PO SCH ×2 (09:41→21:07)
[2019-02-14] MEDS: Glucophage XR 500 MG PO SCH (09:41)
[2019-02-14] MEDS: ZOCOR 20MG PO SCH (09:41)
[2019-02-14] MEDS: PLAVIX 75 MG Tablet PO SCH (09:42)
[2019-02-14] MEDS: Calcium 500MG W/Vit D Tablet PO SCH (09:42)
[2019-02-14] MEDS: Wellbutrin SR 150 MG PO SCH (09:42)
[2019-02-14] MEDS ORDERED: BABY ASPIRIN 81 MG CHEW PO SCH (10:00)
[2019-02-15] MEDS: Sodium Chloride 0.9% W/ 20 mEq KCl/LITER 1,000 ML IV SCH ×2 (06:04→16:34)
[2019-02-15] MEDS: Calcium 500MG W/Vit D Tablet PO SCH (09:39)
[2019-02-15] MEDS: Glucophage XR 500 MG PO SCH (09:39)
[2019-02-15] MEDS: ECOTRIN 81 MG PO SCH (09:39)
[2019-02-15] MEDS: ZOCOR 20MG PO SCH (09:40)
[2019-02-15] MEDS: PLAVIX 75 MG Tablet PO SCH (09:40)
[2019-02-15] MEDS: Tamiflu 75MG Capsule PO SCH ×2 (09:40→22:09)
[2019-02-15] MEDS: Lopressor 25MG Tab PO SCH (09:40)
[2019-02-15] MEDS: PROTONIX 40 MG IV IV SCH (09:40)
[2019-02-15] MEDS: Wellbutrin SR 150 MG PO SCH (09:40)
[2019-02-15 12:49] LABS: ALKALINE PHOSPHATASE 69 U/L (38-126); ANION GAP 10.8 MEQ/L (5-15); BLOOD UREA NITROGEN 8 mg/dL (9-20); CHLORIDE 102 mmol/L (98-107); Calcium 7.1 mg/dL (8.4-10.2); Carbon Dioxide 22 mmol/L (22-30); Creatinine 1 0.77 mg/dL (0.66-1.25); Glucose 101 mg/dL (74-106); Potassium 3.8 mmol/L (3.5-5.1); SGOT/AST 59 U/L (17-59); SGPT/ALT 16 U/L (0-50); SODIUM 131 mmol/L (137-145); Total Protein 6.3 g/dL (6.3-8.2)
[2019-02-15] MEDS: Tessalon Perles 100 MG PO PRN (22:20)
[2019-02-16] MEDS: Sodium Chloride 0.9% W/ 20 mEq KCl/LITER 1,000 ML IV SCH (02:36)
--- NOTE | 2019-02-16 09:16 | PCM.DS ---
Discharge Summary Date of Admission: 02/13/19 20:03 Admitting Physician: PERLA LARIOS Primary Care Provider: PERLA LARIOS Allergies Allergies acetaminophen [From Vicodin] Allergy (Severe, Verified 02/13/19 17:44) Rash hydrocodone [From Vicodin] Allergy (Severe, Verified 02/13/19 17:44) Rash oxycodone [From Percocet] Allergy (Severe, Verified 02/13/19 17:44) Rash Sulfa (Sulfonamide Antibiotics) Allergy (Severe, Verified 02/13/19 17:44) Rash Hospital Summary - Hospital Course Hospital Course: Chief Complaint Diagnosis fever, abdominal pain, cough, for 3 days Allergies Allergy/AdvReac Type Severity Reaction Status Date / Time acetaminophen [From Vicodin] Allergy Severe Rash Verified 02/13/19 17:44 hydrocodone [From Vicodin] Allergy Severe Rash Verified 02/13/19 17:44 oxycodone [From Percocet] Allergy Severe Rash Verified 02/13/19 17:44 Sulfa (Sulfonamide Allergy Severe Rash Verified 02/13/19 17:44 Antibiotics) Vital Signs (Last 24 hours) Temp Pulse Resp BP Pulse Ox 02/16/19 04:00 98.9 F 82 20 122/68 91 L 02/16/19 00:00 99 F 80 18 126/70 90 L 02/15/19 22:31 93 L 02/15/19 20:00 98.2 F 86 18 104/62 93 L 02/15/19 16:23 98.2 F 82 20 124/70 92 L 02/15/19 12:09 98.7 F 72 18 112/58 94 L Home Medications Medication Instructions Recorded Confirmed Last Taken Type Calcium Carbonate/Vitamin D3 1 each PO DAILY 02/13/19 02/13/19 Unknown History [Os-Joey 500+D Tablet] Metformin HCl [Glucophage Xr] 1 tab PO DAILY 02/13/19 02/13/19 Unknown History Rosuvastatin Calcium 10 mg PO DAILY 02/13/19 02/13/19 Unknown History Current Medications Generic Name Dose Route Start Last Admin Trade Name Freq PRN Reason Stop Dose Admin Acetaminophen 650 mg 02/13/19 20:06 Tylenol 325 Mg PO 03/15/19 20:05 Q4H PRN PRN PAIN AND/OR FEVER Aspirin 81 mg 02/14/19 10:00 02/15/19 09:39 Ecotrin 81 Mg PO 03/16/19 09:59 81 mg DAILY DANIELE Administration Benzonatate 100 mg 02/13/19 21:26 02/15/19 22:20 Tessalon Perles 100 Mg PO 03/15/19 21:25 100 mg TID PRN PRN Administration COUGH Bupropion HCl 150 mg 02/14/19 10:00 02/15/19 09:40 Wellbutrin Sr 150 Mg PO 03/16/19 09:59 150 mg DAILY DANIELE Administration Calcium Carbonate 1 tab 02/14/19 10:00 02/15/19 09:39 Calcium 500mg W/Vit D Tablet PO 03/16/19 09:59 1 tab DAILY DANIELE Administration Clopidogrel Bisulfate 75 mg 02/14/19 10:00 02/15/19 09:40 Plavix 75 Mg Tablet PO 03/16/19 09:59 75 mg DAILY DANIELE Administration Potassium Chloride/Sodium Chloride 1,000 mls @ 100 mls/hr 02/13/19 20:06 02:36 Sodium Chloride 0.9% W/ 20 Meq Kcl/Liter IV 03/15/19 20:05 100 mls/hr .Q10H DANIELE Administration Insulin Aspart 0 unit 02/13/19 20:06 02/14/19 16:34 Novolog Insulin SQ 03/15/19 20:05 8 unit UD PRN Administration HYPERGLYCEMIA Metformin HCl 500 mg 02/14/19 10:00 02/15/19 09:39 Glucophage Xr 500 Mg PO 03/16/19 09:59 500 mg DAILY DANIELE Administration Metoprolol Tartrate 25 mg 02/14/19 10:00 02/15/19 09:40 Lopressor 25mg Tab PO 03/16/19 09:59 25 mg DAILY DANIELE Administration Ondansetron HCl 4 mg 02/13/19 20:06 Zofran 4 Mg/2 Ml Vial IV 03/15/19 20:05 Q6H PRN PRN NAUSEA/VOMITING Oseltamivir Phosphate 75 mg 02/13/19 22:00 02/15/19 22:09 Tamiflu 75mg Capsule PO 02/18/19 21:59 75 mg BID DANIELE Administration Pantoprazole Sodium 40 mg 02/14/19 10:00 02/15/19 09:40 Protonix 40 Mg Iv IV 03/16/19 09:59 40 mg Q24H10 DANIELE Administration Simvastatin 20 mg 02/14/19 10:00 02/15/19 09:40 Zocor 20mg PO 03/16/19 09:59 20 mg DAILY DANIELE Administration Discontinued Medications Generic Name Dose Route Start Last Admin Trade Name Freq PRN Reason Stop Dose Admin Sodium Chloride 1,000 mls @ 999 mls/hr 02/13/19 17:45 02/13/19 19:06 Sodium Chloride 0.9% 1000 Ml IV 02/13/19 18:45 Infused .Q1H1M STA Infusion Sodium Chloride Confirm 02/13/19 17:54 Sodium Chloride 0.9% 1000 Ml Administered 02/13/19 17:55 Dose 1,000 mls @ ud .ROUTE .STK-MED ONE Ondansetron HCl 4 mg 02/13/19 17:45 02/13/19 17:56 Zofran 4 Mg/2 Ml Vial IV 02/13/19 17:46 4 mg STAT ONE Administration Ondansetron HCl Confirm 02/13/19 17:54 Zofran 4 Mg/2 Ml Vial Administered 02/13/19 17:55 Dose 4 mg .ROUTE .STK-MED ONE Intake & Output (Last 24 hours) 02/13/19 02/14/19 02/15/19 02/16/19 11:59 11:59 11:59 11:59 Intake Total 2107 4111 3632 Output Total 400 750 250 Balance 1707 3361 3382 Weight 76.5 kg Laboratory Results (Last 24 hours) 02/15/19 12:30 Sodium 131 L Potassium 3.8 Chloride 102 Carbon Dioxide 22 Anion Gap 10.8 BUN 8 L Creatinine 0.77 Estimated GFR > 60.0 Glucose 101 Calcium 7.1 L Total Bilirubin 0.40 AST 59 ALT 16 Alkaline Phosphatase 69 Serum Total Protein 6.3 Albumin 3.0 L Orders (Last 24 hours) Category Date Time Status CMP Routine Lab 02/15/19 12:30 Completed Patient Care Notes (Last 24 hours) 02/16/19 08:28 Case Management Note by Halima Morales Talked with KYREE KAY regarding needs at time of discharge. Patient reports residing at [home] with . Patient reports plans on returning to [ home] upon discharge. No needs identified at this time, will continue to follow. Initialized on 02/16/19 08:28 - END OF NOTE 02/15/19 13:28 Nursing Note by Jaylin Vale This nurse rounded with Dr. Larios. Pt had removed o2. O2 sat 83% on room air. Pt kept due to drop in o2 sat. Initialized on 02/15/19 13:28 - END OF NOTE 02/15/19 13:20 (created 02/15/19 13:34) Respiratory Note by Lisbeth Zavala PT'S O2 SAT ON ROOM AIR WAS 83%. PT WAS THEN PLACED BACK ON OXYGEN AT 2LPM VIA NASAL CANNULA. O2 SAT INCREASED TO 88%. OXYGEN WAS INCREASED TO 3LPM VIA NASAL CANNULA. O2 SAT INCREASED TO 91%. PT ENCOURAGED TO LEAVE OXYGEN ON. PT VERBALIZED UNDERSTANDING. DR. LARIOS AND BIZTALK SOFTWARE DEVELOPER ALSO AT BEDSIDE. Initialized on 02/15/19 13:34 - END OF NOTE Doing better, discharge home today - Vitals & Intake/Output Vital Signs: Vital Signs Temperature 98.9 F 02/16/19 04:00 Pulse Rate 82 02/16/19 04:00 Respiratory Rate 20 02/16/19 04:00 Blood Pressure 122/68 02/16/19 04:00 O2 Sat by Pulse Oximetry 91 L 02/16/19 04:00 Oxygen-Last Documented O2 Percentage 2 Liters = 28% Intake & Output: Intake & Output 02/13/19 02/14/19 02/15/19 02/16/19 11:59 11:59 11:59 11:59 Intake Total 2107 4111 3632 Output Total 400 750 250 Balance 1707 8881 3382 Weight 76.5 kg - Lab Result Diagrams: 02/14/19 05:43 02/15/19 12:30 Lab Results-Last 24 Hrs: Accuchecks Accucheck Value: 101 Accucheck Value: 165 Accucheck Value: 164 Accucheck Value: 145 Lab Results-Last 24 Hours 02/15/19 Range/Units 12:30 Sodium 131 L (137-145) mmol/L Potassium 3.8 (3.5-5.1) mmol/L Chloride 102 (98-107) mmol/L Carbon Dioxide 22 (22-30) mmol/L Anion Gap 10.8 (5-15) MEQ/L BUN 8 L (9-20) mg/dL Creatinine 0.77 (0.66-1.25) mg/dL Estimated GFR > 60.0 ML/MIN Glucose 101 (74-106) mg/dL Calcium 7.1 L (8.4-10.2) mg/dL Total Bilirubin 0.40 (0.2-1.3) mg/dL AST 59 (17-59) U/L ALT 16 (0-50) U/L Alkaline Phosphatase 69 (38-126) U/L Serum Total Protein 6.3 (6.3-8.2) g/dL Albumin 3.0 L (3.5-5.0) g/dL Micro Results-Entire Visit: Accuchecks Accucheck Value: 101 Accucheck Value: 165 Accucheck Value: 164 Accucheck Value: 145 - Procedures and Test Procedures and Tests throughout Hospitalization: Therapy Orders & Screens 02/14/19 07:50 Oxygen Nasal Cannula 2 lpm Comment: Diagnosis: fever, abdominal pain, cough, for 3 days Discharge Exam General Appearance: no apparent distress, alert Neurologic Exam: alert, oriented x 3, cooperative, normal mood/affect, nml cerebellar function, sensation nml, No motor deficits Eye Exam: PERRL, EOMI, eyes nml inspection Ears, Nose, Throat Exam: normal ENT inspection, pharynx normal, moist mucous membranes Neck Exam: normal inspection, non-tender, supple, full range of motion Respiratory Exam: diminished breath sounds, wheezing, No respiratory distress Cardiovascular Exam: regular rate/rhythm, normal heart sounds Gastrointestinal/Abdomen Exam: soft, No tenderness, No mass Male Genitalia Exam: deferred Rectal Exam: deferred Back Exam: normal inspection, normal range of motion, No CVA tenderness, No vertebral tenderness Extremity Exam: normal inspection, normal range of motion Skin Exam: normal color, warm, dry Final Diagnosis/Problem List - Final Discharge Diagnosis/Problem (1) Influenza A Current Visit: Yes Status: Resolved Code(s): J10.1 - FLU DUE TO OTH IDENT INFLUENZA VIRUS W OTH RESP MANIFEST (2) Abdominal pain Current Visit: Yes Status: Resolved Code(s): R10.9 - UNSPECIFIED ABDOMINAL PAIN (3) Dehydration Current Visit: Yes Status: Resolved Code(s): E86.0 - DEHYDRATION (4) Hyponatremia Current Visit: Yes Status: Resolved Code(s): E87.1 - HYPO-OSMOLALITY AND HYPONATREMIA (5) Hypoxia Current Visit: Yes Status: Acute Code(s): R09.02 - HYPOXEMIA (6) COPD (chronic obstructive pulmonary disease) with acute bronchitis Current Visit: Yes Status: Acute Assessment & Plan: patient will require oxygen at home. Oxygen sats 81% Code(s): J44.0 - CHR OBSTRUCTIVE PULMON DISEASE WITH (ACUTE) LOWER RESP INFCT; J20.9 - ACUTE BRONCHITIS, UNSPECIFIED - Discharge Discharge Date: 02/16/19 Disposition: Home, Self-Care Condition: Stable Prescriptions: New Oseltamivir 75 mg [Tamiflu 75MG Capsule] 75 mg PO BID #6 cap Continue Aspirin 81 gm Chew [Baby Aspirin 81 mg Chew] 81 mg PO DAILY Bupropion HCl 150 mg Sr [Wellbutrin SR 150 MG] 150 mg PO DAILY Metoprolol Tartrate 25 mg PO DAILY Clopidogrel Bisulfate [Clopidogrel] 75 mg PO DAILY Rosuvastatin Calcium 10 mg PO DAILY Calcium Carbonate/Vitamin D3 [Os-Joey 500-Vit D3 200 Caplet] 1 each PO DAILY Metformin HCl [Glucophage Xr] 1 tab PO DAILY Instructions: Flu, Adult (DC) Additional Instructions: HOME O2 PROVIDED BY [facility]- CAN CALL [phone] WITH ANY QUESTIONS OR PROBLEMS. Follow up with: PERLA LARIOS MD [Primary Care Provider] - 02/25/19 10:00 am
[2019-02-16] MEDS: ECOTRIN 81 MG PO SCH (09:40)
[2019-02-16] MEDS: Wellbutrin SR 150 MG PO SCH (09:40)
[2019-02-16] MEDS: Glucophage XR 500 MG PO SCH (09:40)
[2019-02-16] MEDS: Tamiflu 75MG Capsule PO SCH (09:40)
[2019-02-16] MEDS: ZOCOR 20MG PO SCH (09:40)
[2019-02-16] MEDS: PROTONIX 40 MG IV IV SCH (09:40)
[2019-02-16] MEDS: Lopressor 25MG Tab PO SCH (09:40)
[2019-02-16] MEDS: PLAVIX 75 MG Tablet PO SCH (09:40)
[2019-02-16] MEDS: Calcium 500MG W/Vit D Tablet PO SCH (09:40)
[2019-02-16 13:08] VITALS: BP 126/76; PULSE 77; O2SAT 97
== END 2019-02-16 14:45 | disposition home or self-care (01) ==
LOC: ED 17:31 → MED SURG 20:03
PROVIDERS: ADMIT General Practice; ATTEND General Practice
DX: J09.X2 Influenza due to identified novel influenza A virus with other respiratory manifestations (principal); R10.9 Unspecified abdominal pain; E86.0 Dehydration; E87.1 Hypo-osmolality and hyponatremia; J44.0 Chronic obstructive pulmonary disease with (acute) lower respiratory infection; E11.9 Type 2 diabetes mellitus without complications; R09.02 Hypoxemia; Z79.899 Other long term (current) drug therapy
CPT/HCPCS: 36415; 80048; 80053; 82150; 82962; 83036; 83605; 83690; 85025; 87631; 94760; 96360; 96374; 99285; G0378; J2405; A9270-GY

== ENCOUNTER 2023-03-11 16:53 | Inpatient (IN) | payer MEDICARE ==
[2023-03-11] MEDS ORDERED: DUONEB 0.5-3 MG/3 ml Neb IH ONE ×2 (17:38→17:43)
[2023-03-11] MEDS ORDERED: solu-MEDROL 125 MG, Sterile H2O 10 ml 2 ML IV ONE ×2 (17:38)
[2023-03-11 18:09] LABS: Absolute Neutrophil Ct (ANC) 16.44 x10^3/uL (1.4-6.9); BASOPHIL % 0.3 % (0.0-0.4); Basophil (Absolute #) 0.05 x10^3/uL (0-0.4); Eosinophil (Absolute #) 0 x10^3/uL (0-0.5); Hematocrit 40.2 % (42-50); Hemoglobin 14.4 g/dL (12.5-18.0); IMMATURE GRAN # 0.11 x10^3u/L (0.00-0.03); IMMATURE GRAN % 0.6 % (0.00-0.4); Lymphocyte (Absolute #) 0.88 x10^3/uL (1.0-4.6); Lymphocytes % 4.6 % (24.0-44.0); Mean Cell Volume 84.8 fL (78-100); Mean Corpuscular Hemoglobin 30.4 pg (26-32); Mean Corpuscular Hgb Concent. 35.8 g/dL (32-36); Mean Platelet Volume 9.2 fL (7.5-11.0); Monocyte (Absolute #) 1.69 x10^3/uL (0.0-1.3); Monocytes % 8.8 % (0.0-12.0); Neutrophil % 85.7 % (36.0-66.0); Platelet Count 465 x10^3/uL (150-450); Red Blood Count 4.74 x10^6/uL (4.1-5.6); Red Cell Distribution Width 11.9 % (11.5-14.0); White Blood Count 19.2 x10^3/uL (4.0-10.5)
[2023-03-11] MEDS ORDERED: solu-MEDROL ONE (18:16)
[2023-03-11] MEDS ORDERED: Sterile H2O 10 ml IJ ONE (18:16)
[2023-03-11 18:39] LABS: NT PRO BNPII 1300 pg/mL (<300); TROPONIN < 0.012 ng/mL (0.000-0.034)
[2023-03-11 18:57] LABS: ALBUMIN 3.4 g/dL (3.5-5.0); ANION GAP 15.2 MEQ/L (5-15); BILIRUBIN,TOTAL 0.8 mg/dL (0.2-1.3); Calcium 8.7 mg/dL (8.4-10.2); Creatinine 1 0.74 mg/dL (0.66-1.25); EST GLOMERULAR FILTRATION RATE 100.6 ML/MIN; Potassium 4.1 mmol/L (3.5-5.1); Total Protein 6.4 g/dL (6.3-8.2)
--- NOTE | 2023-03-11 19:27 | ERPHSYRPT ---
- History of Present Illness Time Seen by Provider: 03/11/23 17:15 Source: patient Patient Subjective Stated Complaint: SOB Triage Nursing Assessment: Patient brought into ED per w/c and transferred to bed per self. Patient A+O X3. Patient's skin flushed, warm and dry. Patient was at Dr. Larios's office today for appt and his oxygen was 82% on room air. Patient initial oxygen noted to be 77% on room air. Patient placed on oxygen at 4 liters per n/c and increased to 88%. Patient placed on Oxy mask at 6 liters with O2 at 92%. Patient complains of fever, cough, right sided rib pain 5/10. Lungs noted to have rhonchi throughout. Physician History: Patient is 63-year-old male presents to our ED as a referral from his primary care doctor for evaluation of a cough fever shortness of breath and rib pain. Patient is a smoker. Per report patient was hypoxic in his primary care doctor's office. Upon arrival patient was hypoxic here as well. Patient placed on a nonrebreather mask. O2 sat increased acceptable levels. Patient was febrile 100.4 upon arrival. Patient's symptoms are progressive. Symptoms are moderate in intensity. Shortness of breath worse with exertion. No active chest pain at time of evaluation. Patient voiced no other complaints or concerns at this time. Portions of this note were created with voice recognition technology. There may be grammatical, spelling, punctuation or sound alike errors Timing/Duration: today Activities at Onset: activity Severity of Dyspnea-Max: moderate Severity of Dyspnea-Current: mild Possible Cause: occasional episodes Modifying Factors: Improves With: activity Associated Symptoms: cough, fever Allergies/Adverse Reactions: acetaminophen [From Vicodin] Allergy (Severe, Verified 03/11/23 17:05) Rash hydrocodone [From Vicodin] Allergy (Severe, Verified 03/11/23 17:05) Rash oxycodone [From Percocet] Allergy (Severe, Verified 03/11/23 17:05) Rash Sulfa (Sulfonamide Antibiotics) Allergy (Severe, Verified 03/11/23 17:05) Rash Home Medications: Aspirin 81 gm Chew [Baby Aspirin 81 mg Chew] 81 mg PO DAILY 09/30/16 [History] Clopidogrel Bisulfate [Clopidogrel] 75 mg PO DAILY 05/22/18 [History] Metoprolol Tartrate 25 mg PO DAILY 05/22/18 [History] Amlodipine Besylate 5 mg [Norvasc 5 mg] 10 mg PO DAILY 03/11/23 [History] Hx Tetanus, Diphtheria Vaccination/Date Given: No Hx Influenza Vaccination/Date Given: Yes Hx Pneumococcal Vaccination/Date Given: No Immunizations Up to Date: Yes Travel Risk - International Travel Have you traveled outside of the country in past 3 weeks: No - Coronavirus Screening Are you exhibiting any of the following symptoms?: Yes Symptoms: Fever, Cough: New Onset, Shortness of Breath, Vomiting/Diarrhea - Vaccine Status Have you recieved a Covid-19 vaccination: No Traffic Rate Analyst: Unknown - Vaccination Dates Dates if Unknown: na - Review of Systems Constitutional: No Symptoms, No Fever, No Chills Eyes: No Symptoms Ears, Nose, & Throat: No Symptoms Respiratory: No Symptoms, No Cough, No Dyspnea Cardiac: No Symptoms, No Chest Pain, No Edema, No Syncope Abdominal/Gastrointestinal: No Symptoms, No Abdominal Pain, No Nausea, No Vomiting, No Diarrhea Genitourinary Symptoms: No Symptoms, No Dysuria Musculoskeletal: No Symptoms, No Back Pain, No Neck Pain Skin: No Symptoms, No Rash Neurological: No Symptoms, No Dizziness, No Focal Weakness, No Sensory Changes Psychological: No Symptoms Endocrine: No Symptoms Hematologic/Lymphatic: No Symptoms Immunological/Allergic: No Symptoms All Other Systems: Reviewed and Negative - Past Medical History Pertinent Past Medical History: Yes Neurological History: No Pertinent History ENT History: No Pertinent History Cardiac History: Myocardial Infarction ([place]) Respiratory History: COPD Endocrine Medical History: No Pertinent History Musculoskeletal History: Rheumatoid Arthritis GI Medical History: No Pertinent History History: Other Psycho-Social History: No Pertinent History Male Reproductive Disorders: No Pertinent History Other Medical History: pt was born with one kidney - Past Surgical History Past Surgical History: Yes Neuro Surgical History: No Pertinent History Cardiac: Vascular Surgery Respiratory: No Pertinent History Gastrointestinal: No Pertinent History Genitourinary: No Pertinent History Musculoskeletal: Amputation, Other Male Surgical History: No Pertinent History Other Surgical History: bi-fem bipass. left hand, finger amputation - Social History Smoking Status: Former smoker Exposure to second hand smoke: Yes Drug Use: none Patient Lives Alone: No - Nursing Vital Signs Nursing Vital Signs: Initial Vital Signs Pulse Rate 90 03/11/23 17:00 Respiratory Rate 32 H 01/23/24 17:00 Blood Pressure 145/71 03/11/23 17:00 O2 Sat by Pulse Oximetry 89 L 03/11/23 17:00 Pain Scale Pain Intensity 0 - Physical Exam General Appearance: no apparent distress, alert Eye Exam: PERRL/EOMI Ears, Nose, Throat Exam: hearing grossly normal, normal ENT inspection, normal pharynx Neck Exam: normal inspection, supple Respiratory Exam: diminished breath sounds, crackles/rales, rhonchi Cardiovascular/Chest Exam: normal heart sounds, regular rate/rhythm Abdominal/Gastrointestinal Exam: soft, No tenderness, No distention, No mass Extremity Exam: non-tender, normal range of motion, normal inspection, no calf tenderness, no pedal edema Neurologic Exam: alert, oriented x 3, cooperative, director inpatient headache program II-XII nml as tested, sensation nml, No motor deficits Skin Exam: normal color, warm, No dry Lymphatic Exam: No adenopathy SpO2 Interpretation: normal SpO2: 91 O2 Delivery: Room Air - Course Nursing assessment & vital signs reviewed: Yes EKG Interpreted by Me: RATE (91), Sinus Rhythm, NORMAL AXIS, NORMAL INTERVALS - CT Exams Chest CT Interpretation: Tele-radiologist Report (No comps. Respiration artifact limits PE evaluation. No obvious PE. Mild patchy right lung and left lower lung patchy airspace disease. COPD. Absent left kidney) Ordered Tests: Active Orders 24 hr Category Date Time Status Deicer Repairer STAT Care 03/11/23 17:38 Active EKG-ER Only STAT Care 03/11/23 17:38 Active IV Insertion STAT Care 03/11/23 17:38 Active Pulse Oximetry (ED) STAT Care 03/11/23 17:38 Active CHEST WITH CONTRAST [CT] Stat Exams 03/11/23 19:25 Taken BLOOD CULTURE Stat Lab 03/11/23 18:00 Received CBC W DIFF Stat Lab 03/11/23 17:10 Completed CMP Stat Lab 03/11/23 17:10 Completed D-DIMER QUANTITATIVE Stat Lab 03/11/23 17:10 Completed NT PRO BNPII Stat Lab 03/11/23 17:10 Completed TROPONIN Q4H Lab 03/11/23 17:10 Completed TROPONIN Q4H Lab 03/11/23 19:55 Completed TROPONIN Q4H Lab 03/12/23 01:45 Ordered Respiratory Therapy Assessment DAILY RT 03/11/23 17:52 Active Transfer Order Routine Transfer 03/11/23 Ordered Medication Summary Generic Name Dose Route Start Last Admin Trade Name Woo PRN Reason Stop Dose Admin Ceftriaxone Sodium/Dextrose 2 g in 50 mls @ 100 mls/hr 03/11/23 22:00 03/11/23 22:13 Rocephin 2 Gm-D5w 50ml Bag IV 03/11/23 22:29 100 mls/hr STAT STA 100 mls/hr Administration Azithromycin 500 mg in 250 mls @ 250 mls/hr 03/11/23 22:00 Zithromax 500 Mg/ 250 Ml Nacl Premix IV 03/11/23 22:59 STAT STA Sodium Chloride 1,000 mls @ 125 mls/hr 03/11/23 22:15 03/11/23 22:13 Sodium Chloride 0.9% 1000 Ml IV 03/12/23 07:00 125 mls/hr .Q8H DANIELE Administration Discontinued Medications Generic Name Dose Route Start Last Admin Trade Name Woo PRN Reason Stop Dose Admin Albuterol/Ipratropium 3 ml 03/11/23 17:38 03/11/23 17:48 Ipratropium/Albuterol Sulfate 3 Ml Ampul.Neb IH 03/11/23 17:39 3 ml STAT ONE Administration Albuterol/Ipratropium Confirm 03/11/23 17:43 Ipratropium/Albuterol Sulfate 3 Ml Ampul.Neb Administered 03/11/23 17:44 Dose 3 ml IH .STK-MED ONE Methylprednisolone Sodium 0 mg 03/11/23 17:38 03/11/23 18:18 Succinate 125 mg/ Sterile IV 03/11/23 17:39 125 mg Water 2 ml STAT ONE Administration Ceftriaxone Sodium/Dextrose Confirm 03/11/23 22:05 Rocephin 2 Gm-D5w 50ml Bag Administered 03/11/23 22:06 Dose 2 g in 50 mls @ ud IV .STK-MED ONE Methylprednisolone Sodium Succinate Confirm 03/11/23 18:16 Methylprednis Sod Succ 125 Mg/2 Ml Vial Administered 03/11/23 18:17 Dose 125 mg .ROUTE .STK-MED ONE Sterile Water Confirm 03/11/23 18:16 Water For Injection,Sterile 10 Ml Vial Administered 03/11/23 18:17 Dose 10 ml IJ .STK-MED ONE Lab/Rad Data: Laboratory Result Diagrams 03/11/23 17:10 03/11/23 17:10 Laboratory Results 03/11/23 03/11/23 03/11/23 Range/Units 19:55 17:10 17:10 WBC (4.0-10.5) x10^3/uL RBC (4.1-5.6) x10^6/uL Hgb (12.5-18.0) g/dL Hct (42-50) % MCV (78-100) fL MCH (26-32) pg MCHC (32-36) g/dL RDW (11.5-14.0) % Plt Count (150-450) x10^3/uL MPV (7.5-11.0) fL Gran % (36.0-66.0) % Immature Gran % (Auto) (0.00-0.4) % Nucleat RBC Rel Count (0.00-0.1) % Eos # (Auto) (0-0.5) x10^3/uL Immature Gran # (Auto) (0.00-0.03) x10^3u/L Absolute Lymphs (auto) (1.0-4.6) x10^3/uL Absolute Monos (auto) (0.0-1.3) x10^3/uL Absolute Nucleated RBC (0.00-0.01) x10^3u/L Lymphocytes % (24.0-44.0) % Monocytes % (0.0-12.0) % Eosinophils % (0.00-5.0) % Basophils % (0.0-0.4) % Absolute Granulocytes (1.4-6.9) x10^3/uL Basophils # (0-0.4) x10^3/uL D-Dimer 2.19 H* (0.0-0.50) mg/L Sodium (137-145) mmol/L Potassium (3.5-5.1) mmol/L Chloride (98-107) mmol/L Carbon Dioxide (22-30) mmol/L Anion Gap (5-15) MEQ/L BUN (9-20) mg/dL Creatinine (0.66-1.25) mg/dL Estimated GFR ML/MIN Glucose (74-106) mg/dL Calcium (8.4-10.2) mg/dL Total Bilirubin (0.2-1.3) mg/dL AST (17-59) U/L ALT (0-50) U/L Alkaline Phosphatase (38-126) U/L Troponin I < 0.012 < 0.012 (0.000-0.034) ng/mL NT-Pro-B Natriuret Pep 1300 (<300) pg/mL Serum Total Protein (6.3-8.2) g/dL Albumin (3.5-5.0) g/dL 03/11/23 03/11/23 Range/Units 17:10 17:10 WBC 19.2 H (4.0-10.5) x10^3/uL RBC 4.74 (4.1-5.6) x10^6/uL Hgb 14.4 (12.5-18.0) g/dL Hct 40.2 L (42-50) % MCV 84.8 (78-100) fL MCH 30.4 (26-32) pg MCHC 35.8 (32-36) g/dL RDW 11.9 (11.5-14.0) % Plt Count 465 H (150-450) x10^3/uL MPV 9.2 (7.5-11.0) fL Gran % 85.7 H (36.0-66.0) % Immature Gran % (Auto) 0.6 H (0.00-0.4) % Nucleat RBC Rel Count 0.0 (0.00-0.1) % Eos # (Auto) 0 (0-0.5) x10^3/uL Immature Gran # (Auto) 0.11 H (0.00-0.03) x10^3u/L Absolute Lymphs (auto) 0.88 L (1.0-4.6) x10^3/uL Absolute Monos (auto) 1.69 H (0.0-1.3) x10^3/uL Absolute Nucleated RBC 0.00 (0.00-0.01) x10^3u/L Lymphocytes % 4.6 L (24.0-44.0) % Monocytes % 8.8 (0.0-12.0) % Eosinophils % 0.0 (0.00-5.0) % Basophils % 0.3 (0.0-0.4) % Absolute Granulocytes 16.44 H (1.4-6.9) x10^3/uL Basophils # 0.05 (0-0.4) x10^3/uL D-Dimer (0.0-0.50) mg/L Sodium 122 L (137-145) mmol/L Potassium 4.1 (3.5-5.1) mmol/L Chloride 88 L (98-107) mmol/L Carbon Dioxide 23 (22-30) mmol/L Anion Gap 15.2 H (5-15) MEQ/L BUN 6 L (9-20) mg/dL Creatinine 0.74 (0.66-1.25) mg/dL Estimated GFR 100.6 ML/MIN Glucose 100 (74-106) mg/dL Calcium 8.7 (8.4-10.2) mg/dL Total Bilirubin 0.80 (0.2-1.3) mg/dL AST 21 (17-59) U/L ALT 13 (0-50) U/L Alkaline Phosphatase 123 (38-126) U/L Troponin I (0.000-0.034) ng/mL NT-Pro-B Natriuret Pep (<300) pg/mL Serum Total Protein 6.4 (6.3-8.2) g/dL Albumin 3.4 L (3.5-5.0) g/dL - Progress Progress: improved Air Movement: fair Progress Note: 63-year-old male with history of COPD smoker presents to our ED as a referral from primary care doctor's office for evaluation of hypoxia. Upon arrival patient was observed to be febrile 100.4. Breath sounds were diminished coarse with audible wheezes. Patient placed on a nonrebreather mask. Blood cultures obtained. CBC reveals a leukocytosis of 19.2. Thrombocytosis of 465. CMP reveals hyponatremia at 122. D-dimer positive. CTA chest negative for PE however bilateral pneumonia observed. BNP 1300. Troponin negative x 2. Patient received albuterol nebulizer treatment. Solu-Medrol administered along with azithromycin and Rocephin. We were unaware that patient had 1 kidney. This was observed on today's CAT scan. Patient now receiving IV fluids to address the hyponatremia and to address the contrast dye administered during the CTA chest study. Plan of care discussed with patient. He agrees to admission to [facility] for further evaluation and treatment. Case discussed with Dr. Rome hospitalist who accepts admission at 10:15 PM. Portions of this note were created with voice recognition technology. There may be grammatical, spelling, punctuation or sound alike errors Complexity of problem addressed is moderate high severe exacerbation of chronic condition. Patient hypoxic requiring immediate oxygen therapy No critical care time Complexity of data reviewed and analyzed is extensive. Test ordered test reviewed. Results analyzed and correlated clinically with history and physical examination. Management discussed with hospitalist who accepts admission to observation. Risk of complication and or risk of morbidity/mortality of patient management is high. Patient received albuterol treatment. Patient requires hospitalization for further evaluation and treatment. Vital stable. Time spent to admit patient is approximately 30 minutes. Plan of care established for shared decision making. No social determinants of health present impede follow-up. Portions of this note were created with voice recognition technology. There may be grammatical, spelling, punctuation or sound alike errors 03/11/23 22:20 Blood Culture(s) Obtained: Yes Antibiotics given: Yes Discussed with : Julianna Counseled pt/family regarding: lab results, diagnosis, rad results - Departure Departure Disposition: Observation Clinical Impression: Pneumonia, COPD exacerbation, Hypoxia, Fever, Leukocytosis, Thrombocytosis, Hyponatremia Condition: Stable Critical Care Time: No Referrals: PERLA LARIOS MD [Primary Care Provider] - Follow up/PCP as directed Instructions: Chronic Obstructive Pulmonary Disease
[2023-03-11] MEDS ORDERED: Zithromax 500 MG/ 250 ML NaCl Premix 500 MG/250 ML IVPB IV STA (22:00)
[2023-03-11] MEDS ORDERED: ROCEPHIN 2 Gm-D5w 50ML BAG** 2 G/50 ML IVPB IV STA (22:00)
[2023-03-11] MEDS ORDERED: ROCEPHIN 2 Gm-D5w 50ML BAG** 2 G/50 ML IVPB IV ONE (22:05)
[2023-03-11] MEDS: Sodium Chloride 0.9% 1000 ML 1,000 ML IV SCH ×2 (22:13→23:40)
[2023-03-11] MEDS ORDERED: Docusate Sodium 100 MG PO PRN (22:52)
[2023-03-11] MEDS ORDERED: TYLENOL 325 MG PO PRN (22:52)
--- NOTE | 2023-03-11 23:29 | PCM.HP ---
History of Present Illness - Chief Complaint Chief Complaint: Pneumonia, COPD exacerbation Date: 03/11/23 History of Present Illness: is a 63 year old male (with a history of COPD x 5 years but not on home oxygen, and a history of a solitary kidney) who presents to the hospital with a chief complaint of dyspnea and cough. He has been experiencing shortness of breath for several days (worse with exertion) but no report of fever or hemoptysis. He also reported right sided abdominal pain which began after coughing. He has experienced nausea and vomiting (no diarrhea) and has been drinking a significant amount of water. He presented to his PCP office and was noted to be hypoxic, so he was sent to the ED where the hypoxia was confirmed. In the ED the patient was also found to have an elevated temperature (100.4 F). - Review of Systems Constitutional: No Symptoms Eyes: No Symptoms Ears, Nose, & Throat: No Symptoms Respiratory: Cough, Short Of Breath Cardiac: No Symptoms Abdominal/Gastrointestinal: Abdominal Pain Genitourinary Symptoms: No Symptoms Musculoskeletal: No Symptoms Skin: No Symptoms Neurological: No Symptoms Psychological: No Symptoms Endocrine: No Symptoms Hematologic/Lymphatic: No Symptoms Immunological/Allergic: No Symptoms All Other Systems: Reviewed and Negative Medications & Allergies Home Medications: Home Medication List Aspirin 81 gm Chew [Baby Aspirin 81 mg Chew] 81 mg PO DAILY 09/30/16 [History Confirmed 03/11/23] Clopidogrel Bisulfate [Clopidogrel] 75 mg PO DAILY 05/22/18 [History Confirmed 03/11/23] Metoprolol Tartrate 25 mg PO DAILY 05/22/18 [History Confirmed 03/11/23] Amlodipine Besylate 5 mg [Norvasc 5 mg] 10 mg PO DAILY 03/11/23 [History Confirmed 03/11/23] Allergies/Adverse Reactions: Allergies Allergy/AdvReac Type Severity Reaction Status Date / Time acetaminophen [From Vicodin] Allergy Severe Rash Verified 03/11/23 17:05 hydrocodone [From Vicodin] Allergy Severe Rash Verified 03/11/23 17:05 oxycodone [From Percocet] Allergy Severe Rash Verified 03/11/23 17:05 Sulfa (Sulfonamide Allergy Severe Rash Verified 03/11/23 17:05 Antibiotics) - Past Medical History Past Medical History: Yes Neurological History: No Pertinent History ENT History: No Pertinent History Cardiac History: Myocardial Infarction ([place]) Respiratory History: COPD Endocrine Medical History: No Pertinent History Musculoskelatal History: Rheumatoid Arthritis GI Medical History: No Pertinent History History: Other Pyscho-Social History: No Pertinent History Male Reproductive Disorders: No Pertinent History Comment: pt was born with one kidney - Past Surgical History Past Surgical History: Yes Neuro Surgical History: No Pertinent History Cardiac History: Vascular Surgery Respiratory Surgery: No Pertinent History GI Surgical History: No Pertinent History Genitourinary Surgical Hx: No Pertinent History Musculskeletal Surgical Hx: Amputation, Other Male Surgical History: No Pertinent History Other Surgical History: bi-fem bipass. left hand, finger amputation - Social History Smoking Status: Former smoker Exposure to second hand smoke: Yes Alcohol: None Drug Use: none - Physical Exam Vital Signs: Vital Signs - 24 hr Temp Pulse Resp BP BP Pulse Ox 03/11/23 22:27 91 L 03/11/23 22:01 81 23 113/54 91 L 03/11/23 21:30 81 20 124/61 91 L 03/11/23 21:00 88 31 H 127/54 94 L 03/11/23 20:30 82 32 H 128/72 93 L 03/11/23 20:13 86 30 H 136/86 94 L 03/11/23 19:30 132/57 03/11/23 19:01 90 30 H 150/70 91 L 03/11/23 18:30 35 H 131/66 87 L 03/11/23 18:12 89 27 H 135/68 91 L 03/11/23 17:52 92 H 28 H 88 L 03/11/23 17:42 77 L 03/11/23 17:30 90 29 H 154/63 91 L 03/11/23 17:08 100.4 F 93 H 35 H 145/71 77 L 03/11/23 17:00 90 32 H 145/71 89 L General Appearance: no apparent distress, alert Neurologic Exam: alert, oriented x 3 Eye Exam: PERRL/EOMI, eyes nml inspection Ears, Nose, Throat Exam: normal ENT inspection Neck Exam: normal inspection, non-tender, supple, full range of motion Respiratory Exam: diminished breath sounds Cardiovascular Exam: regular rate/rhythm, normal heart sounds Gastrointestinal/Abdomen Exam: soft, normal bowel sounds, other (no peritoneal signs or rigidity. No guarding with palpation of the right quadrants.) Back Exam: normal range of motion Extremity Exam: normal inspection, normal range of motion Skin Exam: normal color Results - Labs Lab/Micro Results: Lab Results-Last 24 Hours 03/11/23 03/11/23 03/11/23 Range/Units 17:10 17:10 17:10 WBC 19.2 H (4.0-10.5) x10^3/uL RBC 4.74 (4.1-5.6) x10^6/uL Hgb 14.4 (12.5-18.0) g/dL Hct 40.2 L (42-50) % MCV 84.8 (78-100) fL MCH 30.4 (26-32) pg MCHC 35.8 (32-36) g/dL RDW 11.9 (11.5-14.0) % Plt Count 465 H (150-450) x10^3/uL MPV 9.2 (7.5-11.0) fL Gran % 85.7 H (36.0-66.0) % Immature Gran % (Auto) 0.6 H (0.00-0.4) % Nucleat RBC Rel Count 0.0 (0.00-0.1) % Eos # (Auto) 0 (0-0.5) x10^3/uL Immature Gran # (Auto) 0.11 H (0.00-0.03) x10^3u/L Absolute Lymphs (auto) 0.88 L (1.0-4.6) x10^3/uL Absolute Monos (auto) 1.69 H (0.0-1.3) x10^3/uL Absolute Nucleated RBC 0.00 (0.00-0.01) x10^3u/L Lymphocytes % 4.6 L (24.0-44.0) % Monocytes % 8.8 (0.0-12.0) % Eosinophils % 0.0 (0.00-5.0) % Basophils % 0.3 (0.0-0.4) % Absolute Granulocytes 16.44 H (1.4-6.9) x10^3/uL Basophils # 0.05 (0-0.4) x10^3/uL D-Dimer 2.19 H* (0.0-0.50) mg/L Sodium 122 L (137-145) mmol/L Potassium 4.1 (3.5-5.1) mmol/L Chloride 88 L (98-107) mmol/L Carbon Dioxide 23 (22-30) mmol/L Anion Gap 15.2 H (5-15) MEQ/L BUN 6 L (9-20) mg/dL Creatinine 0.74 (0.66-1.25) mg/dL Estimated GFR 100.6 ML/MIN Glucose 100 (74-106) mg/dL Calcium 8.7 (8.4-10.2) mg/dL Total Bilirubin 0.80 (0.2-1.3) mg/dL AST 21 (17-59) U/L ALT 13 (0-50) U/L Alkaline Phosphatase 123 (38-126) U/L Troponin I (0.000-0.034) ng/mL NT-Pro-B Natriuret Pep (<300) pg/mL Serum Total Protein 6.4 (6.3-8.2) g/dL Albumin 3.4 L (3.5-5.0) g/dL 03/11/23 03/11/23 Range/Units 17:10 19:55 WBC (4.0-10.5) x10^3/uL RBC (4.1-5.6) x10^6/uL Hgb (12.5-18.0) g/dL Hct (42-50) % MCV (78-100) fL MCH (26-32) pg MCHC (32-36) g/dL RDW (11.5-14.0) % Plt Count (150-450) x10^3/uL MPV (7.5-11.0) fL Gran % (36.0-66.0) % Immature Gran % (Auto) (0.00-0.4) % Nucleat RBC Rel Count (0.00-0.1) % Eos # (Auto) (0-0.5) x10^3/uL Immature Gran # (Auto) (0.00-0.03) x10^3u/L Absolute Lymphs (auto) (1.0-4.6) x10^3/uL Absolute Monos (auto) (0.0-1.3) x10^3/uL Absolute Nucleated RBC (0.00-0.01) x10^3u/L Lymphocytes % (24.0-44.0) % Monocytes % (0.0-12.0) % Eosinophils % (0.00-5.0) % Basophils % (0.0-0.4) % Absolute Granulocytes (1.4-6.9) x10^3/uL Basophils # (0-0.4) x10^3/uL D-Dimer (0.0-0.50) mg/L Sodium (137-145) mmol/L Potassium (3.5-5.1) mmol/L Chloride (98-107) mmol/L Carbon Dioxide (22-30) mmol/L Anion Gap (5-15) MEQ/L BUN (9-20) mg/dL Creatinine (0.66-1.25) mg/dL Estimated GFR ML/MIN Glucose (74-106) mg/dL Calcium (8.4-10.2) mg/dL Total Bilirubin (0.2-1.3) mg/dL AST (17-59) U/L ALT (0-50) U/L Alkaline Phosphatase (38-126) U/L Troponin I < 0.012 < 0.012 (0.000-0.034) ng/mL NT-Pro-B Natriuret Pep 1300 (<300) pg/mL Serum Total Protein (6.3-8.2) g/dL Albumin (3.5-5.0) g/dL - Radiology Impressions Radiology Exams & Impressions: Radiology Procedures Category Date Time Status CHEST WITH CONTRAST [CT] Stat Exams 03/11/23 19:25 Taken - Other Procedures and Tests Respiratory Therapy 03/11/23 17:52 Respiratory Therapy Assessment DAILY Assessment/Plan (1) COPD exacerbation Current Visit: Yes Status: Acute Assessment & Plan: Patient presents with acute hypoxic respiratory failure. Nebs, steroids, oxygen wean as tolerated. Will need to assess ambulatory O2 needs. Code(s): J44.1 - CHRONIC OBSTRUCTIVE PULMONARY DISEASE W (ACUTE) EXACERBATION (2) Pneumonia Current Visit: Yes Status: Acute Assessment & Plan: CTA negative for PE. Antibiotics. Code(s): J18.9 - PNEUMONIA, UNSPECIFIED ORGANISM (3) Hyponatremia Current Visit: No Status: Resolved Assessment & Plan: Likely due to hypovolemia and dehydration with oral fluid intake. Received NS in ED and will monitor Na overnight with gentle NS infusion. Oral fluid restriction. Code(s): E87.1 - HYPO-OSMOLALITY AND HYPONATREMIA (4) Leukocytosis Current Visit: Yes Status: Acute Assessment & Plan: Likely due to pneumonia. Will be on antibiotics. Follow up UA (pending). Abdominal exam is benign; the reported right abdominal pain is likely muscle strain from coughing Code(s): D72.829 - ELEVATED WHITE BLOOD CELL COUNT, UNSPECIFIED Telemedicine Encounter - Telemedicine Encounter Telemedicine Encounter: The entirety of this encounter was performed via Telemedicine"
[2023-03-12] MEDS ORDERED: solu-MEDROL ONE ×3 (01:13→23:26)
[2023-03-12] MEDS ORDERED: Sterile H2O 10 ml IJ ONE (01:13)
[2023-03-12] MEDS: solu-MEDROL 40 MG, Sterile H2O 10 ml 1 ML IV SCH ×10 (01:14→23:28)
[2023-03-12 01:15] LABS: Appearance Clear (Clear); Bacteria None Seen /HPF (None Seen); Bilirubin Negative (Negative); Blood Small (Negative); Epithelial Cells Rare /HPF (None Seen); Glucose, Urine Negative (Negative); Hyaline Casts NONE SEEN /LPF (0-2); Ketones 15 (Negative); Leukocyte Esterase Negative (Negative); Nitrite Negative (Negative); Protein,Urine Dip 30 (Negative); RBC 0-2 /HPF (0-5); Specific Gravity >=1.030 (1.005-1.030); Urobilinogen 0.2 mg/dL (0.2)
[2023-03-12 01:16] LABS: ADD URINE CULTURE? YES (NO)
[2023-03-12] MEDS: DUONEB 0.5-3 MG/3 ml Neb IH SCH ×4 (01:19→19:12)
[2023-03-12 01:22] LABS: ANION GAP 16.4 MEQ/L (5-15); Calcium 8.6 mg/dL (8.4-10.2); Creatinine 1 0.8 mg/dL (0.66-1.25); EST GLOMERULAR FILTRATION RATE 98.2 ML/MIN; Potassium 4.3 mmol/L (3.5-5.1)
[2023-03-12 04:58] LABS: Absolute Neutrophil Ct (ANC) 14.37 x10^3/uL (1.4-6.9); BASOPHIL % 0.2 % (0.0-0.4); Basophil (Absolute #) 0.03 x10^3/uL (0-0.4); Eosinophil (Absolute #) 0 x10^3/uL (0-0.5); Hematocrit 39.2 % (42-50); Hemoglobin 13.6 g/dL (12.5-18.0); IMMATURE GRAN # 0.14 x10^3u/L (0.00-0.03); IMMATURE GRAN % 0.9 % (0.00-0.4); Lymphocyte (Absolute #) 0.58 x10^3/uL (1.0-4.6); Lymphocytes % 3.8 % (24.0-44.0); Mean Cell Volume 86.5 fL (78-100); Mean Corpuscular Hgb Concent. 34.7 g/dL (32-36); Mean Platelet Volume 8.4 fL (7.5-11.0); Monocyte (Absolute #) 0.31 x10^3/uL (0.0-1.3); Neutrophil % 93.1 % (36.0-66.0); Platelet Count 443 x10^3/uL (150-450); Red Blood Count 4.53 x10^6/uL (4.1-5.6); Red Cell Distribution Width 12.1 % (11.5-14.0); White Blood Count 15.4 x10^3/uL (4.0-10.5)
[2023-03-12 05:19] LABS: Calcium 8.6 mg/dL (8.4-10.2); Creatinine 1 0.91 mg/dL (0.66-1.25); EST GLOMERULAR FILTRATION RATE 93.5 ML/MIN; Potassium 4.5 mmol/L (3.5-5.1)
--- NOTE | 2023-03-12 05:42 | PCM.NOTE ---
Date and Time: 03/12/23 0536 Subjective Assessment: is a 63 year old male (with a history of COPD x 5 years but not on home oxygen, and a history of a solitary kidney) who presented to ED 03/11/23 with complaints of dyspnea and cough for the past several days. No reports of fever or hemoptysis. He also reported right sided abdominal pain which began after coughing. He has experienced nausea and vomiting (no diarrhea) and has been drinking a significant amount of water. He presented to his PCP office and was noted to be hypoxic, so he was sent to the ED where spo2 was noted at 77% pm RA. Patient was placed on 6L with noted improvement of spo2 @ 96%. In the ED the patient was also found to have an elevated temperature (100.4 F). Lab findings w ere remarkable for leukocytosis with WBC at 19.2, BNP 1300,didmer at 2.19, hyponatremia with sodium at 122. CTA chest negative for PE however bilateral pneumonia observed. Patient admitted with respiratory failure with hypoxia with sepsis secondary to pneumonia/copd exacerbation and hyponatremia. Plan for treatment with Rocephin/azithromycin. 03/12/23: Met with patient bedside. Endorses improvement of shortness of breath and cough. States his cough is productive with green sputum. Still feeling weak, requiring 5L oxymizer (RA at baseline) Discussed CTA results showing no PE, bilateral pneumonia. WBC is improving. Still hyponatremic. Plan for continued treatment with IV abx/steroid/ IVF. Consider pulm consult if no improvement. CXR tomorrow to monitor treatment response. Denies fever,cp, abdominal pain, SANTOYO, dizziness, N/V/D. - Review of Systems Constitutional: Weakness Eyes: No Symptoms Ears, Nose, & Throat: Nose Congestion Respiratory: Cough, Short Of Breath Cardiac: No Symptoms Abdominal/Gastrointestinal: No Symptoms Genitourinary Symptoms: No Symptoms Musculoskeletal: No Symptoms Skin: No Symptoms Neurological: No Symptoms Psychological: No Symptoms Endocrine: No Symptoms Hematologic/Lymphatic: No Symptoms Immunological/Allergic: No Symptoms Objective Exam General Appearance: no apparent distress Neurologic Exam: alert, oriented x 3, cooperative Skin Exam: normal color Eye Exam: PERRL Ears, Nose, Throat Exam: moist mucous membranes Neck Exam: normal inspection Respiratory Exam: diminished breath sounds, crackles/rales, wheezing Cardiovascular Exam: regular rate/rhythm, normal heart sounds Gastrointestinal/Abdomen Exam: soft, normal bowel sounds Extremity Exam: normal inspection Back Exam: normal inspection Male Genitalia Exam: deferred Rectal Exam: deferred OBJECTIVE DATA Vital Signs: Vital Signs - 24 hr Temp Pulse Resp BP BP Pulse Ox 03/12/23 04:00 98.0 F 85 17 113/56 97 03/11/23 23:27 100.5 F 88 19 115/65 91 L 03/11/23 22:37 87 L 03/11/23 22:27 91 L 03/11/23 22:01 81 23 113/54 91 L 03/11/23 21:30 81 20 124/61 91 L 03/11/23 21:00 88 31 H 127/54 94 L 03/11/23 20:30 82 32 H 128/72 93 L 03/11/23 20:13 86 30 H 136/86 94 L 03/11/23 19:30 132/57 03/11/23 19:01 90 30 H 150/70 91 L 03/11/23 18:30 35 H 131/66 87 L 03/11/23 18:12 89 27 H 135/68 91 L 03/11/23 17:52 92 H 28 H 88 L 03/11/23 17:42 77 L 03/11/23 17:30 90 29 H 154/63 91 L 03/11/23 17:08 100.4 F 93 H 35 H 145/71 77 L 03/11/23 17:00 90 32 H 145/71 89 L Pain Assessment - Last Documented Pain Intensity 4 Intake and Output: Intake & Output 03/09/23 03/10/23 03/11/23 03/12/23 11:59 11:59 11:59 11:59 Intake Total 638 Balance 638 Weight 69.5 kg Lab Results: Lab Results-Last 24 Hours 03/11/23 03/11/23 03/11/23 Range/Units 17:10 17:10 17:10 WBC 19.2 H (4.0-10.5) x10^3/uL RBC 4.74 (4.1-5.6) x10^6/uL Hgb 14.4 (12.5-18.0) g/dL Hct 40.2 L (42-50) % MCV 84.8 (78-100) fL MCH 30.4 (26-32) pg MCHC 35.8 (32-36) g/dL RDW 11.9 (11.5-14.0) % Plt Count 465 H (150-450) x10^3/uL MPV 9.2 (7.5-11.0) fL Gran % 85.7 H (36.0-66.0) % Immature Gran % (Auto) 0.6 H (0.00-0.4) % Nucleat RBC Rel Count 0.0 (0.00-0.1) % Eos # (Auto) 0 (0-0.5) x10^3/uL Immature Gran # (Auto) 0.11 H (0.00-0.03) x10^3u/L Absolute Lymphs (auto) 0.88 L (1.0-4.6) x10^3/uL Absolute Monos (auto) 1.69 H (0.0-1.3) x10^3/uL Absolute Nucleated RBC 0.00 (0.00-0.01) x10^3u/L Lymphocytes % 4.6 L (24.0-44.0) % Monocytes % 8.8 (0.0-12.0) % Eosinophils % 0.0 (0.00-5.0) % Basophils % 0.3 (0.0-0.4) % Absolute Granulocytes 16.44 H (1.4-6.9) x10^3/uL Basophils # 0.05 (0-0.4) x10^3/uL D-Dimer 2.19 H* (0.0-0.50) mg/L Sodium 122 L (137-145) mmol/L Potassium 4.1 (3.5-5.1) mmol/L Chloride 88 L (98-107) mmol/L Carbon Dioxide 23 (22-30) mmol/L Anion Gap 15.2 H (5-15) MEQ/L BUN 6 L (9-20) mg/dL Creatinine 0.74 (0.66-1.25) mg/dL Estimated GFR 100.6 ML/MIN Glucose 100 (74-106) mg/dL Calcium 8.7 (8.4-10.2) mg/dL Total Bilirubin 0.80 (0.2-1.3) mg/dL AST 21 (17-59) U/L ALT 13 (0-50) U/L Alkaline Phosphatase 123 (38-126) U/L Troponin I (0.000-0.034) ng/mL NT-Pro-B Natriuret Pep (<300) pg/mL Serum Total Protein 6.4 (6.3-8.2) g/dL Albumin 3.4 L (3.5-5.0) g/dL Urine Color (Yellow) Urine Appearance (Clear) Urine pH (4.6-8.0) Ur Specific [place] (1.005-1.030) Urine Protein (Negative) Urine Glucose (UA) (Negative) mg/dL Urine Ketones (Negative) Urine Blood (Negative) Urine Nitrite (Negative) Urine Bilirubin (Negative) Urine Urobilinogen (0.2) mg/dL Ur Leukocyte Esterase (Negative) U Hyaline Cast (Auto) (0-2) /LPF Urine Microscopic RBC (0-5) /HPF Urine Microscopic WBC (0-5) /HPF Ur Epithelial Cells (None Seen) /HPF Urine Bacteria (None Seen) /HPF Urine Culture Reflexed (NO) 03/11/23 03/11/23 03/12/23 Range/Units 17:10 19:55 01:00 WBC (4.0-10.5) x10^3/uL RBC (4.1-5.6) x10^6/uL Hgb (12.5-18.0) g/dL Hct (42-50) % MCV (78-100) fL MCH (26-32) pg MCHC (32-36) g/dL RDW (11.5-14.0) % Plt Count (150-450) x10^3/uL MPV (7.5-11.0) fL Gran % (36.0-66.0) % Immature Gran % (Auto) (0.00-0.4) % Nucleat RBC Rel Count (0.00-0.1) % Eos # (Auto) (0-0.5) x10^3/uL Immature Gran # (Auto) (0.00-0.03) x10^3u/L Absolute Lymphs (auto) (1.0-4.6) x10^3/uL Absolute Monos (auto) (0.0-1.3) x10^3/uL Absolute Nucleated RBC (0.00-0.01) x10^3u/L Lymphocytes % (24.0-44.0) % Monocytes % (0.0-12.0) % Eosinophils % (0.00-5.0) % Basophils % (0.0-0.4) % Absolute Granulocytes (1.4-6.9) x10^3/uL Basophils # (0-0.4) x10^3/uL D-Dimer (0.0-0.50) mg/L Sodium (137-145) mmol/L Potassium (3.5-5.1) mmol/L Chloride (98-107) mmol/L Carbon Dioxide (22-30) mmol/L Anion Gap (5-15) MEQ/L BUN (9-20) mg/dL Creatinine (0.66-1.25) mg/dL Estimated GFR ML/MIN Glucose (74-106) mg/dL Calcium (8.4-10.2) mg/dL Total Bilirubin (0.2-1.3) mg/dL AST (17-59) U/L ALT (0-50) U/L Alkaline Phosphatase (38-126) U/L Troponin I < 0.012 < 0.012 (0.000-0.034) ng/mL NT-Pro-B Natriuret Pep 1300 (<300) pg/mL Serum Total Protein (6.3-8.2) g/dL Albumin (3.5-5.0) g/dL Urine Color Yellow (Yellow) Urine Appearance Clear (Clear) Urine pH 6.0 (4.6-8.0) Ur Specific [place] >=1.030 A (1.005-1.030) Urine Protein 30 (Negative) Urine Glucose (UA) Negative (Negative) mg/dL Urine Ketones 15 A (Negative) Urine Blood Small A (Negative) Urine Nitrite Negative (Negative) Urine Bilirubin Negative (Negative) Urine Urobilinogen 0.2 (0.2) mg/dL Ur Leukocyte Esterase Negative (Negative) U Hyaline Cast (Auto) NONE SEEN (0-2) /LPF Urine Microscopic RBC 0-2 (0-5) /HPF Urine Microscopic WBC 3-5 (0-5) /HPF Ur Epithelial Cells Rare (None Seen) /HPF Urine Bacteria None Seen (None Seen) /HPF Urine Culture Reflexed YES (NO) 03/12/23 03/12/23 03/12/23 Range/Units 01:00 01:00 04:55 WBC 15.4 H (4.0-10.5) x10^3/uL RBC 4.53 (4.1-5.6) x10^6/uL Hgb 13.6 (12.5-18.0) g/dL Hct 39.2 L (42-50) % MCV 86.5 (78-100) fL MCH 30.0 (26-32) pg MCHC 34.7 (32-36) g/dL RDW 12.1 (11.5-14.0) % Plt Count 443 (150-450) x10^3/uL MPV 8.4 (7.5-11.0) fL Gran % 93.1 H (36.0-66.0) % Immature Gran % (Auto) 0.9 H (0.00-0.4) % Nucleat RBC Rel Count 0.0 (0.00-0.1) % Eos # (Auto) 0 (0-0.5) x10^3/uL Immature Gran # (Auto) 0.14 H (0.00-0.03) x10^3u/L Absolute Lymphs (auto) 0.58 L (1.0-4.6) x10^3/uL Absolute Monos (auto) 0.31 (0.0-1.3) x10^3/uL Absolute Nucleated RBC 0.00 (0.00-0.01) x10^3u/L Lymphocytes % 3.8 L (24.0-44.0) % Monocytes % 2.0 (0.0-12.0) % Eosinophils % 0.0 (0.00-5.0) % Basophils % 0.2 (0.0-0.4) % Absolute Granulocytes 14.37 H (1.4-6.9) x10^3/uL Basophils # 0.03 (0-0.4) x10^3/uL D-Dimer (0.0-0.50) mg/L Sodium 125 L (137-145) mmol/L Potassium 4.3 (3.5-5.1) mmol/L Chloride 90 L (98-107) mmol/L Carbon Dioxide 22 (22-30) mmol/L Anion Gap 16.4 H (5-15) MEQ/L BUN 11 (9-20) mg/dL Creatinine 0.80 (0.66-1.25) mg/dL Estimated GFR 98.2 ML/MIN Glucose 161 H (74-106) mg/dL Calcium 8.6 (8.4-10.2) mg/dL Total Bilirubin (0.2-1.3) mg/dL AST (17-59) U/L ALT (0-50) U/L Alkaline Phosphatase (38-126) U/L Troponin I < 0.012 (0.000-0.034) ng/mL NT-Pro-B Natriuret Pep (<300) pg/mL Serum Total Protein (6.3-8.2) g/dL Albumin (3.5-5.0) g/dL Urine Color (Yellow) Urine Appearance (Clear) Urine pH (4.6-8.0) Ur Specific [place] (1.005-1.030) Urine Protein (Negative) Urine Glucose (UA) (Negative) mg/dL Urine Ketones (Negative) Urine Blood (Negative) Urine Nitrite (Negative) Urine Bilirubin (Negative) Urine Urobilinogen (0.2) mg/dL Ur Leukocyte Esterase (Negative) U Hyaline Cast (Auto) (0-2) /LPF Urine Microscopic RBC (0-5) /HPF Urine Microscopic WBC (0-5) /HPF Ur Epithelial Cells (None Seen) /HPF Urine Bacteria (None Seen) /HPF Urine Culture Reflexed (NO) 03/12/23 Range/Units 04:55 WBC (4.0-10.5) x10^3/uL RBC (4.1-5.6) x10^6/uL Hgb (12.5-18.0) g/dL Hct (42-50) % MCV (78-100) fL MCH (26-32) pg MCHC (32-36) g/dL RDW (11.5-14.0) % Plt Count (150-450) x10^3/uL MPV (7.5-11.0) fL Gran % (36.0-66.0) % Immature Gran % (Auto) (0.00-0.4) % Nucleat RBC Rel Count (0.00-0.1) % Eos # (Auto) (0-0.5) x10^3/uL Immature Gran # (Auto) (0.00-0.03) x10^3u/L Absolute Lymphs (auto) (1.0-4.6) x10^3/uL Absolute Monos (auto) (0.0-1.3) x10^3/uL Absolute Nucleated RBC (0.00-0.01) x10^3u/L Lymphocytes % (24.0-44.0) % Monocytes % (0.0-12.0) % Eosinophils % (0.00-5.0) % Basophils % (0.0-0.4) % Absolute Granulocytes (1.4-6.9) x10^3/uL Basophils # (0-0.4) x10^3/uL D-Dimer (0.0-0.50) mg/L Sodium 126 L (137-145) mmol/L Potassium 4.5 (3.5-5.1) mmol/L Chloride 89 L (98-107) mmol/L Carbon Dioxide 26 (22-30) mmol/L Anion Gap 15.0 (5-15) MEQ/L BUN 14 (9-20) mg/dL Creatinine 0.91 (0.66-1.25) mg/dL Estimated GFR 93.5 ML/MIN Glucose 211 H (74-106) mg/dL Calcium 8.6 (8.4-10.2) mg/dL Total Bilirubin (0.2-1.3) mg/dL AST (17-59) U/L ALT (0-50) U/L Alkaline Phosphatase (38-126) U/L Troponin I (0.000-0.034) ng/mL NT-Pro-B Natriuret Pep (<300) pg/mL Serum Total Protein (6.3-8.2) g/dL Albumin (3.5-5.0) g/dL Urine Color (Yellow) Urine Appearance (Clear) Urine pH (4.6-8.0) Ur Specific [place] (1.005-1.030) Urine Protein (Negative) Urine Glucose (UA) (Negative) mg/dL Urine Ketones (Negative) Urine Blood (Negative) Urine Nitrite (Negative) Urine Bilirubin (Negative) Urine Urobilinogen (0.2) mg/dL Ur Leukocyte Esterase (Negative) U Hyaline Cast (Auto) (0-2) /LPF Urine Microscopic RBC (0-5) /HPF Urine Microscopic WBC (0-5) /HPF Ur Epithelial Cells (None Seen) /HPF Urine Bacteria (None Seen) /HPF Urine Culture Reflexed (NO) Radiology Exams: Radiology Procedures Category Date Time Status CHEST WITH CONTRAST [CT] Stat Exams 03/11/23 19:25 Taken Assessment/Plan (1) Sepsis Current Visit: Yes Status: Acute Assessment & Plan: -Secondary to pneumonia most likely -CTA confirmed pneumonia, no PE -blood cultures/urine cult pending -Rocephin/azith started, will continue -Gentle hydration in the setting of CHF (2) COPD exacerbation Current Visit: Yes Status: Acute Assessment & Plan: -Supplemental oxygen with spo2 goal > 92%, RA at baseline, may need home oxygen -Azithromycin/rocephin for secondary bacterial pneumonia -DuoNebs/bronchodilator -RT consult -steroids -Consider pulm consult if no improvement Code(s): J44.1 - CHRONIC OBSTRUCTIVE PULMONARY DISEASE W (ACUTE) EXACERBATION (3) Hyponatremia Current Visit: Yes Status: Acute Assessment & Plan: Likely due to hypovolemia and dehydration with oral fluid intake. Received NS in ED and will monitor Na overnight with gentle NS infusion. Oral fluid restriction. Code(s): E87.1 - HYPO-OSMOLALITY AND HYPONATREMIA (4) Leukocytosis Current Visit: Yes Status: Acute Assessment & Plan: Likely due to pneumonia. Will be on antibiotics. Follow up UA (pending). Abdominal exam is benign; the reported right abdominal pain is likely muscle strain from coughing Code(s): D72.829 - ELEVATED WHITE BLOOD CELL COUNT, UNSPECIFIED (5) Pneumonia Current Visit: Yes Status: Acute Code(s): J18.9 - PNEUMONIA, UNSPECIFIED ORGANISM
[2023-03-12 07:16] LABS: Slide Review 1 YES
[2023-03-12] MEDS: Sodium Chloride 0.9% 1000 ML 1,000 ML IV SCH ×2 (07:34→11:39)
--- NOTE | 2023-03-12 08:43 | XRAY ---
Indication: Short of breath. Elevated d-dimer. Multiple contiguous axial images obtained through the chest using 80 cc Isovue 370 contrast and PE protocol. Comparison: None Good opacification of the pulmonary arteries. However mild diffuse respiration artifact limits evaluation of the more distal lobar and segmental branches. No obvious central pulmonary embolus. Heart not enlarged. Aorta is minimally arteriosclerotic without aneurysm/dissection. Small mediastinal and right hilar lymph nodes, none pathologically enlarged. Lungs demonstrates diffuse pulmonary emphysema. Mild scattered patchy airspace disease seen right mid to lower lung and left lower lobe. Also moderate bibasilar dependent atelectasis. No effusion. Bony thorax intact with osteopenia, mild/moderate degenerative changes throughout the spine, and minimal double curvature scoliosis. Limited upper abdomen demonstrates absent left kidney. Impression: 1. Respiration artifact limits pulmonary embolus evaluation. No obvious central pulmonary embolus. 2. Scattered patchy airspace disease, right lung greater than left. 3. Chronic findings including pulmonary emphysema, arteriosclerotic disease, chronic bony findings, and single kidney.
[2023-03-12] MEDS: Acidophilus TABLET PO SCH (09:37)
[2023-03-12] MEDS: MUCINEX DM 600/30MG PO SCH ×2 (09:37→22:26)
[2023-03-12] MEDS: ECOTRIN 81 MG PO SCH (09:37)
[2023-03-12] MEDS: PLAVIX Tablet PO SCH (09:37)
[2023-03-12] MEDS: NORVASC 5 MG PO SCH (09:37)
[2023-03-12] MEDS ORDERED: BABY ASPIRIN 81 MG CHEW PO SCH (10:00)
[2023-03-12] MEDS ORDERED: Lopressor 25MG Tab PO SCH (10:00)
[2023-03-12] MEDS: Nicoderm CQ 21 MG TOP SCH (10:43)
[2023-03-12] MEDS: ENOXAPARIN SODIUM SQ SCH (10:43)
[2023-03-12] MEDS: Tessalon Perles 100 MG PO PRN ×2 (11:37→22:26)
[2023-03-12] MEDS: ROCEPHIN 1 Gm-D5w 50 ml Bag** 1 G/50 ML IVPB IV SCH (22:26)
[2023-03-12] MEDS: Zithromax 500 MG/ 250 ML NaCl Premix 500 MG/250 ML IVPB IV SCH (22:56)
[2023-03-13] MEDS: DUONEB 0.5-3 MG/3 ml Neb IH SCH ×4 (00:56→18:41)
[2023-03-13] MEDS: Sodium Chloride 0.9% 1000 ML 1,000 ML IV SCH ×2 (01:39→15:41)
[2023-03-13 04:55] LABS: Hematocrit 37.2 % (42-50); Hemoglobin 12.5 g/dL (12.5-18.0); Mean Cell Volume 87.7 fL (78-100); Mean Corpuscular Hemoglobin 29.5 pg (26-32); Mean Corpuscular Hgb Concent. 33.6 g/dL (32-36); Mean Platelet Volume 8.7 fL (7.5-11.0); Platelet Count 497 x10^3/uL (150-450); Red Blood Count 4.24 x10^6/uL (4.1-5.6); Red Cell Distribution Width 12.2 % (11.5-14.0); White Blood Count 19.2 x10^3/uL (4.0-10.5)
[2023-03-13 05:11] LABS: ALBUMIN 3.2 g/dL (3.5-5.0); ANION GAP 9.7 MEQ/L (5-15); BILIRUBIN,TOTAL 0.4 mg/dL (0.2-1.3); Calcium 8.2 mg/dL (8.4-10.2); Creatinine 1 0.8 mg/dL (0.66-1.25); EST GLOMERULAR FILTRATION RATE 98.2 ML/MIN; Potassium 4.3 mmol/L (3.5-5.1); Total Protein 6.3 g/dL (6.3-8.2)
--- NOTE | 2023-03-13 05:23 | PCM.NOTE ---
Date and Time: 03/13/23 0520 Subjective Assessment: is a 63 year old male (with a history of COPD x 5 years but not on home oxygen, and a history of a solitary kidney) who presented to ED 03/11/23 with complaints of dyspnea and cough for the past several days. No reports of fever or hemoptysis. He also reported right sided abdominal pain which began after coughing. He has experienced nausea and vomiting (no diarrhea) and has been drinking a significant amount of water. He presented to his PCP office and was noted to be hypoxic, so he was sent to the ED where spo2 was noted at 77% pm RA. Patient was placed on 6L with noted improvement of spo2 @ 96%. In the ED the patient was also found to have an elevated temperature (100.4 F). Lab findings w ere remarkable for leukocytosis with WBC at 19.2, BNP 1300,didmer at 2.19, hyponatremia with sodium at 122. CTA chest negative for PE however bilateral pneumonia observed. Patient admitted with respiratory failure with hypoxia with sepsis secondary to pneumonia/copd exacerbation and hyponatremia. Plan for treatment with Rocephin/azithromycin. 03/12/23: Met with patient bedside. Endorses improvement of shortness of breath and cough. States his cough is productive with green sputum. Still feeling weak, requiring 5L oxymizer (RA at baseline) Discussed CTA results showing no PE, bilateral pneumonia. WBC is improving. Still hyponatremic. Plan for continued treatment with IV abx/steroid/ IVF. Consider pulm consult if no improvement. CXR tomorrow to monitor treatment response. Denies fever,cp, abdominal pain, SANTOYO, dizziness, N/V/D. 03/13/23: Met with patient bedside. Continues with shortness of breath, wheezing, and productive cough with yellow sputum, but is feeling better. Poor sleep last nig ht. Oxygen requirements reduced to 2L NC. WBC no WNL, no fever. Blood glucose levels elevated secondary to steroid use. Steroids to change to PO. Will add SSI and accuchecks. Denies fever, cp, abdominal pain, SANTOYO, dizziness, N/V/D. - Review of Systems Constitutional: No Symptoms Eyes: No Symptoms Ears, Nose, & Throat: No Symptoms Respiratory: Cough, Short Of Breath Cardiac: No Symptoms Abdominal/Gastrointestinal: No Symptoms Genitourinary Symptoms: No Symptoms Musculoskeletal: No Symptoms Skin: No Symptoms Neurological: No Symptoms Psychological: No Symptoms Endocrine: No Symptoms Hematologic/Lymphatic: No Symptoms Immunological/Allergic: No Symptoms Objective Exam General Appearance: no apparent distress Neurologic Exam: alert, oriented x 3, cooperative Skin Exam: normal color Eye Exam: PERRL Ears, Nose, Throat Exam: normal ENT inspection Neck Exam: normal inspection Respiratory Exam: crackles/rales, wheezing Cardiovascular Exam: regular rate/rhythm, normal heart sounds Gastrointestinal/Abdomen Exam: soft, normal bowel sounds Extremity Exam: normal inspection Back Exam: normal inspection Male Genitalia Exam: deferred Rectal Exam: deferred OBJECTIVE DATA Vital Signs: Vital Signs - 24 hr Temp Pulse Resp BP Pulse Ox 03/13/23 04:00 74 20 100 03/13/23 00:58 100 03/13/23 00:00 89.7 F 86 20 120/57 93 L 03/12/23 20:00 99.0 F 91 H 20 125/62 94 L 03/12/23 19:14 91 L 03/12/23 16:00 97.9 F 93 H 16 115/56 91 L 03/12/23 13:12 85 18 93 L 03/12/23 11:32 98.6 F 87 16 128/62 95 03/12/23 07:36 97.6 F 74 16 115/57 100 03/12/23 06:59 100 03/12/23 06:57 86 24 100 Pain Assessment - Last Documented Pain Intensity 0 Intake and Output: Intake & Output 03/10/23 03/11/23 03/12/23 03/13/23 11:59 11:59 11:59 11:59 Intake Total 1418 2064 Output Total 350 2000 Balance 1068 64 Weight 69.5 kg Lab Results: Lab Results-Last 24 Hours 03/12/23 03/12/23 03/12/23 Range/Units 04:55 04:55 05:44 WBC (4.0-10.5) x10^3/uL RBC (4.1-5.6) x10^6/uL Hgb (12.5-18.0) g/dL Hct (42-50) % MCV (78-100) fL MCH (26-32) pg MCHC (32-36) g/dL RDW (11.5-14.0) % Plt Count (150-450) x10^3/uL MPV (7.5-11.0) fL Sodium 126 L (137-145) mmol/L Potassium 4.5 (3.5-5.1) mmol/L Chloride 89 L (98-107) mmol/L Carbon Dioxide 26 (22-30) mmol/L Anion Gap 15.0 (5-15) MEQ/L BUN 14 (9-20) mg/dL Creatinine 0.91 (0.66-1.25) mg/dL Estimated GFR 93.5 ML/MIN Glucose 211 H (74-106) mg/dL Lactic Acid 1.8 (0.4-2.0) Calcium 8.6 (8.4-10.2) mg/dL Total Bilirubin (0.2-1.3) mg/dL AST (17-59) U/L ALT (0-50) U/L Alkaline Phosphatase (38-126) U/L Serum Total Protein (6.3-8.2) g/dL Albumin (3.5-5.0) g/dL Slides for Path Review YES 03/13/23 03/13/23 Range/Units 04:40 04:40 WBC 19.2 H (4.0-10.5) x10^3/uL RBC 4.24 (4.1-5.6) x10^6/uL Hgb 12.5 (12.5-18.0) g/dL Hct 37.2 L (42-50) % MCV 87.7 (78-100) fL MCH 29.5 (26-32) pg MCHC 33.6 (32-36) g/dL RDW 12.2 (11.5-14.0) % Plt Count 497 H (150-450) x10^3/uL MPV 8.7 (7.5-11.0) fL Sodium 130 L (137-145) mmol/L Potassium 4.3 (3.5-5.1) mmol/L Chloride 99 (98-107) mmol/L Carbon Dioxide 26 (22-30) mmol/L Anion Gap 9.7 (5-15) MEQ/L BUN 19 (9-20) mg/dL Creatinine 0.80 (0.66-1.25) mg/dL Estimated GFR 98.2 ML/MIN Glucose 316 H (74-106) mg/dL Lactic Acid (0.4-2.0) Calcium 8.2 L (8.4-10.2) mg/dL Total Bilirubin 0.40 (0.2-1.3) mg/dL AST 32 (17-59) U/L ALT 22 (0-50) U/L Alkaline Phosphatase 128 H (38-126) U/L Serum Total Protein 6.3 (6.3-8.2) g/dL Albumin 3.2 L (3.5-5.0) g/dL Slides for Path Review Radiology Exams: Radiology Procedures Category Date Time Status CHEST WITH CONTRAST [CT] Stat Exams 03/11/23 19:25 Completed Multi-Disciplinary Progress Notes: Multi-Disciplinary Progress Notes 03/12/23 14:02 Physical Therapy Note by Carlyn(L#[id number])Adia P.T. HELD THIS DATE D/T PT'S DIFFICULTY MAINTAINING O2 SATS AT REST. WILL ATTEMPT TOMORROW 03/13/23. Initialized on 03/12/23 14:02 - END OF NOTE Assessment/Plan (1) Sepsis Current Visit: Yes Status: Acute Assessment & Plan: -Secondary to pneumonia most likely -CTA confirmed pneumonia, no PE -blood cultures/urine cult pending -Rocephin/azith started, will continue -Gentle hydration in the setting of CHF 03/13: -Blood and urine culture NGTd -Lactic normal -No longer meets sepsis/sirs criteria (2) COPD exacerbation Current Visit: Yes Status: Acute Assessment & Plan: -Supplemental oxygen with spo2 goal > 92%, RA at baseline, may need home oxygen -Azithromycin/rocephin for secondary bacterial pneumonia -DuoNebs/bronchodilator -RT consult -steroids -Consider pulm consult if no improvement 03/13: -Improving, oxygen requirements now down to 2L, continue to wean -Change steroids to PO -Possible d/c tomorrow Code(s): J44.1 - CHRONIC OBSTRUCTIVE PULMONARY DISEASE W (ACUTE) EXACERBATION (3) Hyponatremia Current Visit: Yes Status: Acute Assessment & Plan: Likely due to hypovolemia and dehydration with oral fluid intake. Received NS in ED and will monitor Na overnight with gentle NS infusion. Oral fluid restriction. 03/13: -Improving, may be secondary to hyperglycemia will continue fluids, and monitoring Code(s): E87.1 - HYPO-OSMOLALITY AND HYPONATREMIA (4) Leukocytosis Current Visit: Yes Status: Acute Assessment & Plan: Likely due to pneumonia. Will be on antibiotics. Follow up UA (pending). Abdominal exam is benign; the reported right abdominal pain is likely muscle strain from coughing Code(s): D72.829 - ELEVATED WHITE BLOOD CELL COUNT, UNSPECIFIED (5) Pneumonia -Supplemental oxygen for goal spo2>92% -Ceftriaxone/azithromycin -RA at baseline #Hyperglycemia -secondary to steroids, will add SSI, should trend down as steroids decrease, will monitor, A1c at 6.17 Current Visit: Yes Status: Acute Code(s): J18.9 - PNEUMONIA, UNSPECIFIED ORGANISM (2) COPD exacerbation Current Visit: Yes Status: Acute Code(s): J44.1 - CHRONIC OBSTRUCTIVE PULMONARY DISEASE W (ACUTE) EXACERBATION (3) Hyponatremia Current Visit: Yes Status: Acute Code(s): E87.1 - HYPO-OSMOLALITY AND HYPONATREMIA (4) Leukocytosis Current Visit: Yes Status: Acute Code(s): D72.829 - ELEVATED WHITE BLOOD CELL COUNT, UNSPECIFIED (5) Pneumonia Current Visit: Yes Status: Acute Code(s): J18.9 - PNEUMONIA, UNSPECIFIED ORGANISM (6) Hyperglycemia Current Visit: Yes Status: Acute Code(s): R73.9 - HYPERGLYCEMIA, UNSPECIFIED
[2023-03-13] MEDS ORDERED: solu-MEDROL ONE (05:53)
[2023-03-13] MEDS: solu-MEDROL 40 MG, Sterile H2O 10 ml 1 ML IV SCH ×2 (06:18)
[2023-03-13] MEDS ORDERED: solu-MEDROL 40 MG, Sterile H2O 10 ml 1 ML IV SCH ×2 (07:30)
[2023-03-13] MEDS: HUMALOG SQ PRN ×4 (09:09→23:02)
[2023-03-13] MEDS: NORVASC 5 MG PO SCH (09:10)
[2023-03-13] MEDS: ENOXAPARIN SODIUM SQ SCH (09:10)
[2023-03-13] MEDS: Acidophilus TABLET PO SCH (09:11)
[2023-03-13] MEDS: Tessalon Perles 100 MG PO PRN ×2 (09:11→23:01)
[2023-03-13] MEDS: ECOTRIN 81 MG PO SCH (09:11)
[2023-03-13] MEDS: PLAVIX Tablet PO SCH (09:11)
[2023-03-13] MEDS: MUCINEX DM 600/30MG PO SCH ×2 (09:11→22:16)
[2023-03-13] MEDS: Nicoderm CQ 21 MG TOP SCH (10:16)
[2023-03-13] MEDS: Tums EX 750 MG PO PRN (18:06)
[2023-03-13] MEDS: DESYREL 50 MG PO SCH (22:16)
[2023-03-13] MEDS: DELTASONE 20 MG PO SCH (22:16)
[2023-03-13] MEDS: ROCEPHIN 1 Gm-D5w 50 ml Bag** 1 G/50 ML IVPB IV SCH (22:21)
[2023-03-14] MEDS: Zithromax 500 MG/ 250 ML NaCl Premix 500 MG/250 ML IVPB IV SCH ×2 (00:50→22:08)
[2023-03-14] MEDS: Tums EX 750 MG PO PRN ×2 (00:50→22:08)
[2023-03-14] MEDS: DUONEB 0.5-3 MG/3 ml Neb IH SCH ×4 (01:36→18:42)
[2023-03-14 04:46] LABS: Hematocrit 36.5 % (42-50); Hemoglobin 12.1 g/dL (12.5-18.0); Mean Cell Volume 89.5 fL (78-100); Mean Corpuscular Hemoglobin 29.7 pg (26-32); Mean Corpuscular Hgb Concent. 33.2 g/dL (32-36); Mean Platelet Volume 8.5 fL (7.5-11.0); Platelet Count 547 x10^3/uL (150-450); Red Blood Count 4.08 x10^6/uL (4.1-5.6); Red Cell Distribution Width 12.7 % (11.5-14.0); White Blood Count 18.8 x10^3/uL (4.0-10.5)
[2023-03-14 05:03] LABS: ANION GAP 10.5 MEQ/L (5-15); BILIRUBIN,TOTAL 0.4 mg/dL (0.2-1.3); Creatinine 1 0.57 mg/dL (0.66-1.25); EST GLOMERULAR FILTRATION RATE 108.8 ML/MIN; Potassium 4.3 mmol/L (3.5-5.1); Total Protein 5.8 g/dL (6.3-8.2)
--- NOTE | 2023-03-14 05:38 | PCM.NOTE ---
Date and Time: 03/14/23 0534 Subjective Assessment: is a 63 year old male (with a history of COPD x 5 years but not on home oxygen, and a history of a solitary kidney) who presented to ED 03/11/23 with complaints of dyspnea and cough for the past several days. No reports of fever or hemoptysis. He also reported right sided abdominal pain which began after coughing. He has experienced nausea and vomiting (no diarrhea) and has been drinking a significant amount of water. He presented to his PCP office and was noted to be hypoxic, so he was sent to the ED where spo2 was noted at 77% pm RA. Patient was placed on 6L with noted improvement of spo2 @ 96%. In the ED the patient was also found to have an elevated temperature (100.4 F). Lab findings w ere remarkable for leukocytosis with WBC at 19.2, BNP 1300,didmer at 2.19, hyponatremia with sodium at 122. CTA chest negative for PE however bilateral pneumonia observed. Patient admitted with respiratory failure with hypoxia with sepsis secondary to pneumonia/copd exacerbation and hyponatremia. Plan for treatment with Rocephin/azithromycin. 03/14: Met with patient bedside. Shortness of breath has improved some, cough now with white sputum, Tessalon perles helping. Remains on 2L. CXR when compared to CT is unchanged per radiologist. Plan to continue abx/steroids. Blood glucose levels elevated, will continue with SSI/adjustments as needed. - Review of Systems Constitutional: No Symptoms Eyes: No Symptoms Ears, Nose, & Throat: No Symptoms Respiratory: Cough, Short Of Breath Cardiac: No Symptoms Abdominal/Gastrointestinal: No Symptoms Genitourinary Symptoms: No Symptoms Musculoskeletal: No Symptoms Skin: No Symptoms Neurological: No Symptoms Psychological: No Symptoms Endocrine: No Symptoms Hematologic/Lymphatic: No Symptoms Immunological/Allergic: No Symptoms Objective Exam General Appearance: no apparent distress Neurologic Exam: alert, oriented x 3, cooperative Skin Exam: normal color Eye Exam: PERRL Ears, Nose, Throat Exam: normal ENT inspection Neck Exam: normal inspection Respiratory Exam: diminished breath sounds Cardiovascular Exam: regular rate/rhythm, normal heart sounds Gastrointestinal/Abdomen Exam: soft, normal bowel sounds Extremity Exam: normal inspection Back Exam: normal inspection Male Genitalia Exam: deferred Rectal Exam: deferred OBJECTIVE DATA Vital Signs: Vital Signs - 24 hr Temp Pulse Resp BP Pulse Ox 03/14/23 04:00 97.1 F 79 22 125/58 92 L 03/14/23 01:36 87 20 100 03/13/23 23:00 98.5 F 81 24 143/65 92 L 03/13/23 19:59 97.3 F 91 H 21 132/63 91 L 03/13/23 18:44 100 03/13/23 16:00 98.2 F 92 H 20 130/62 100 03/13/23 13:09 86 18 92 L 03/13/23 11:34 98.0 F 86 16 128/60 94 L 03/13/23 10:00 90 L 03/13/23 09:59 88 L 03/13/23 07:06 97.8 F 77 20 142/69 100 03/13/23 07:02 76 20 97 Pain Assessment - Last Documented Pain Intensity 0 Intake and Output: Intake & Output 03/11/23 03/12/23 03/13/23 03/14/23 11:59 11:59 11:59 11:59 Intake Total 1418 2464 640 Output Total 350 2200 680 Balance 1068 264 -40 Weight 69.5 kg Lab Results: Lab Results-Last 24 Hours 03/13/23 03/13/23 03/13/23 Range/Units 04:40 08:02 11:29 WBC (4.0-10.5) x10^3/uL RBC (4.1-5.6) x10^6/uL Hgb (12.5-18.0) g/dL Hct (42-50) % MCV (78-100) fL MCH (26-32) pg MCHC (32-36) g/dL RDW (11.5-14.0) % Plt Count (150-450) x10^3/uL MPV (7.5-11.0) fL Sodium (137-145) mmol/L Potassium (3.5-5.1) mmol/L Chloride (98-107) mmol/L Carbon Dioxide (22-30) mmol/L Anion Gap (5-15) MEQ/L BUN (9-20) mg/dL Creatinine (0.66-1.25) mg/dL Estimated GFR ML/MIN Glucose (74-106) mg/dL POC Glucometer 287 H 326 H (74 to 106) mg/dL Hemoglobin A1c 6.17 H (4.5-6.0) % Calcium (8.4-10.2) mg/dL Total Bilirubin (0.2-1.3) mg/dL AST (17-59) U/L ALT (0-50) U/L Alkaline Phosphatase (38-126) U/L Serum Total Protein (6.3-8.2) g/dL Albumin (3.5-5.0) g/dL Nasal Screen MRSA (PCR) (NEGATIVE) 03/13/23 03/13/23 03/13/23 Range/Units 11:30 14:49 16:06 WBC (4.0-10.5) x10^3/uL RBC (4.1-5.6) x10^6/uL Hgb (12.5-18.0) g/dL Hct (42-50) % MCV (78-100) fL MCH (26-32) pg MCHC (32-36) g/dL RDW (11.5-14.0) % Plt Count (150-450) x10^3/uL MPV (7.5-11.0) fL Sodium (137-145) mmol/L Potassium (3.5-5.1) mmol/L Chloride (98-107) mmol/L Carbon Dioxide (22-30) mmol/L Anion Gap (5-15) MEQ/L BUN (9-20) mg/dL Creatinine (0.66-1.25) mg/dL Estimated GFR ML/MIN Glucose (74-106) mg/dL POC Glucometer 338 H 389 H 382 H (74 to 106) mg/dL Hemoglobin A1c (4.5-6.0) % Calcium (8.4-10.2) mg/dL Total Bilirubin (0.2-1.3) mg/dL AST (17-59) U/L ALT (0-50) U/L Alkaline Phosphatase (38-126) U/L Serum Total Protein (6.3-8.2) g/dL Albumin (3.5-5.0) g/dL Nasal Screen MRSA (PCR) (NEGATIVE) 03/13/23 03/13/23 03/13/23 Range/Units 18:15 19:30 22:51 WBC (4.0-10.5) x10^3/uL RBC (4.1-5.6) x10^6/uL Hgb (12.5-18.0) g/dL Hct (42-50) % MCV (78-100) fL MCH (26-32) pg MCHC (32-36) g/dL RDW (11.5-14.0) % Plt Count (150-450) x10^3/uL MPV (7.5-11.0) fL Sodium (137-145) mmol/L Potassium (3.5-5.1) mmol/L Chloride (98-107) mmol/L Carbon Dioxide (22-30) mmol/L Anion Gap (5-15) MEQ/L BUN (9-20) mg/dL Creatinine (0.66-1.25) mg/dL Estimated GFR ML/MIN Glucose (74-106) mg/dL POC Glucometer 304 H 332 H (74 to 106) mg/dL Hemoglobin A1c (4.5-6.0) % Calcium (8.4-10.2) mg/dL Total Bilirubin (0.2-1.3) mg/dL AST (17-59) U/L ALT (0-50) U/L Alkaline Phosphatase (38-126) U/L Serum Total Protein (6.3-8.2) g/dL Albumin (3.5-5.0) g/dL Nasal Screen MRSA (PCR) NOT DETECTED (NEGATIVE) 03/14/23 03/14/23 Range/Units 04:30 04:30 WBC 18.8 H (4.0-10.5) x10^3/uL RBC 4.08 L (4.1-5.6) x10^6/uL Hgb 12.1 L (12.5-18.0) g/dL Hct 36.5 L (42-50) % MCV 89.5 (78-100) fL MCH 29.7 (26-32) pg MCHC 33.2 (32-36) g/dL RDW 12.7 (11.5-14.0) % Plt Count 547 H (150-450) x10^3/uL MPV 8.5 (7.5-11.0) fL Sodium 132 L (137-145) mmol/L Potassium 4.3 (3.5-5.1) mmol/L Chloride 101 (98-107) mmol/L Carbon Dioxide 25 (22-30) mmol/L Anion Gap 10.5 (5-15) MEQ/L BUN 15 (9-20) mg/dL Creatinine 0.57 L (0.66-1.25) mg/dL Estimated GFR 108.8 ML/MIN Glucose 284 H (74-106) mg/dL POC Glucometer (74 to 106) mg/dL Hemoglobin A1c (4.5-6.0) % Calcium 8.0 L (8.4-10.2) mg/dL Total Bilirubin 0.40 (0.2-1.3) mg/dL AST 29 (17-59) U/L ALT 27 (0-50) U/L Alkaline Phosphatase 122 (38-126) U/L Serum Total Protein 5.8 L (6.3-8.2) g/dL Albumin 3.0 L (3.5-5.0) g/dL Nasal Screen MRSA (PCR) (NEGATIVE) Multi-Disciplinary Progress Notes: Multi-Disciplinary Progress Notes 03/13/23 11:23 Case Management Note by Kelsey Downing PATIENT IS HOPEFUL TO NOT NEED ANYTHING NEW AT TIME OF DC. HE IS OPEN TO CONSIDERING HHC BUT WANTS TO WAIT UNTIL CLOSER TO TIME OF DC TO DECIDE. PHYSICAL THERAPY RECOMMENDS PATIENT TO HAVE A ROLLATOR. HE WAS GIVEN DME PROVIDER OPTIONS. HE WOULD LIKE TO USE [facility]. ORDER SUBMITTED WITH DELIVERY TO THE [facility] REQUESTED Initialized on 03/13/23 11:23 - END OF NOTE Assessment/Plan (1) Sepsis Current Visit: Yes Status: Acute Assessment & Plan: Secondary to pneumonia most likely -CTA confirmed pneumonia, no PE -blood cultures/urine cult pending -Rocephin/azith started, will continue -Gentle hydration in the setting of CHF 03/13: -Blood and urine culture NGTd -Lactic normal -No longer meets sepsis/sirs criteria (2) COPD exacerbation Current Visit: Yes Status: Acute Assessment & Plan: -Supplemental oxygen with spo2 goal > 92%, RA at baseline, may need home oxygen -Azithromycin/rocephin for secondary bacterial pneumonia -DuoNebs/bronchodilator -RT consult -steroids -Consider pulm consult if no improvement 03/13: -Improving, oxygen requirements now down to 2L, continue to wean -Change steroids to PO -Possible d/c tomorrow 03/14: -Repeat CXR unchanged when compared to CT Code(s): J44.1 - CHRONIC OBSTRUCTIVE PULMONARY DISEASE W (ACUTE) EXACERBATION (3) Hyponatremia Current Visit: Yes Status: Acute Assessment & Plan: Likely due to hypovolemia and dehydration with oral fluid intake. Received NS in ED and will monitor Na overnight with gentle NS infusion. Oral fluid restriction. 03/13: -Improving, may be secondary to hyperglycemia will continue fluids, and monitoring 03/14: -improved Code(s): E87.1 - HYPO-OSMOLALITY AND HYPONATREMIA (4) Leukocytosis Current Visit: Yes Status: Acute Assessment & Plan: Likely due to pneumonia. Will be on antibiotics. Follow up UA (pending). Abdominal exam is benign; the reported right abdominal pain is likely muscle strain from coughing 03/14: -WBC trending down, will continue abx Code(s): D72.829 - ELEVATED WHITE BLOOD CELL COUNT, UNSPECIFIED (5) Pneumonia -Supplemental oxygen for goal spo2>92% -Ceftriaxone/azithromycin -RA at baseline 03/14: -Qualify for home oxygen -Continue abx/steroids -Repeat cxr today with no change, will add resp. viral panel #Hyperglycemia -secondary to steroids, will add SSI, should trend down as steroids decrease, will monitor, A1c at 6.17 (2) COPD exacerbation Current Visit: Yes Status: Acute Code(s): J44.1 - CHRONIC OBSTRUCTIVE PULMONARY DISEASE W (ACUTE) EXACERBATION (3) Hyponatremia Current Visit: Yes Status: Acute Code(s): E87.1 - HYPO-OSMOLALITY AND HYPONATREMIA (4) Leukocytosis Current Visit: Yes Status: Acute Code(s): D72.829 - ELEVATED WHITE BLOOD CELL COUNT, UNSPECIFIED (5) Pneumonia Current Visit: Yes Status: Acute Code(s): J18.9 - PNEUMONIA, UNSPECIFIED ORGANISM (6) Hyperglycemia Current Visit: Yes Status: Acute Code(s): R73.9 - HYPERGLYCEMIA, UNSPECIFIED
[2023-03-14] MEDS: MUCINEX DM 600/30MG PO SCH ×2 (08:45→22:07)
[2023-03-14] MEDS: Nicoderm CQ 21 MG TOP SCH (08:45)
[2023-03-14] MEDS: DELTASONE 20 MG PO SCH ×2 (08:45→22:08)
[2023-03-14] MEDS: Acidophilus TABLET PO SCH (08:45)
[2023-03-14] MEDS: ECOTRIN 81 MG PO SCH (08:45)
[2023-03-14] MEDS: NORVASC 5 MG PO SCH (08:45)
[2023-03-14] MEDS: ENOXAPARIN SODIUM SQ SCH (08:46)
[2023-03-14] MEDS: HUMALOG SQ PRN ×4 (08:46→22:09)
[2023-03-14] MEDS: PLAVIX Tablet PO SCH (08:46)
--- NOTE | 2023-03-14 08:46 | XRAY ---
Indication: Pneumonia. Short of breath. Comparison: August 12, 2017. Portable chest less inflated with new mild diffuse right lung and left base hazy interstitial alveolar opacities probably clinically reported pneumonia. No consolidation/large effusion. Heart not enlarged. Bony thorax intact with osteopenia and degenerative changes.
[2023-03-14] MEDS: Tessalon Perles 100 MG PO PRN ×2 (08:50→22:08)
[2023-03-14 10:52] LABS: INFLUENZA A NEGATIVE (NEGATIVE); INFLUENZA B NEGATIVE (NEGATIVE); RESPIRATORY SYNCTIAL VIRUS NEGATIVE (NEGATIVE); SARS-CoV-2 Xpert Express NEGATIVE (NEGATIVE)
[2023-03-14] MEDS: ROCEPHIN 1 GM / 100 ML NaCl 1 GM/100 ML IVPB IV SCH (21:01)
[2023-03-14] MEDS ORDERED: Rocephin 1000 MG INJ** 1,000 MG in Sodium Chloride 100ML MINI-BAG PLUS 100 ML IV SCH (22:00)
[2023-03-14] MEDS: DESYREL 50 MG PO SCH (22:08)
[2023-03-15] MEDS: DUONEB 0.5-3 MG/3 ml Neb IH SCH ×4 (01:12→18:16)
--- NOTE | 2023-03-15 05:12 | PCM.NOTE ---
Date and Time: 03/15/23 0511 Subjective Assessment: is a 63 year old male (with a history of COPD x 5 years but not on home oxygen, and a history of a solitary kidney) who presented to ED 03/11/23 with complaints of dyspnea and cough for the past several days. No reports of fever or hemoptysis. He also reported right sided abdominal pain which began after coughing. He has experienced nausea and vomiting (no diarrhea) and has been drinking a significant amount of water. He presented to his PCP office and was noted to be hypoxic, so he was sent to the ED where spo2 was noted at 77% pm RA. Patient was placed on 6L with noted improvement of spo2 @ 96%. In the ED the patient was also found to have an elevated temperature (100.4 F). Lab findings w ere remarkable for leukocytosis with WBC at 19.2, BNP 1300,didmer at 2.19, hyponatremia with sodium at 122. CTA chest negative for PE however bilateral pneumonia observed. Patient admitted with respiratory failure with hypoxia with sepsis secondary to pneumonia/copd exacerbation and hyponatremia. Plan for treatment with Rocephin/azithromycin. 03/15/23: Met with patient bedside. Dyspnea/cough continue to improve. Lungs sounds with increased aeration. Patient requiring 2L oxygen, qualified for home oxygen on discharge. Still endorses weakness. Labs improving. Will have to cover blood glucose while on steroids. Will need to send with insulin and provide education. Plan is for one more night of abx/steroids, possible discharge tomorrow. - Review of Systems Constitutional: No Symptoms Eyes: No Symptoms Ears, Nose, & Throat: No Symptoms Respiratory: Cough, Short Of Breath Cardiac: No Symptoms Abdominal/Gastrointestinal: No Symptoms Genitourinary Symptoms: No Symptoms Musculoskeletal: No Symptoms Skin: No Symptoms Neurological: No Symptoms Psychological: No Symptoms Endocrine: No Symptoms Hematologic/Lymphatic: No Symptoms Immunological/Allergic: No Symptoms Objective Exam General Appearance: no apparent distress Neurologic Exam: alert, oriented x 3, cooperative Skin Exam: normal color Eye Exam: PERRL Ears, Nose, Throat Exam: normal ENT inspection Neck Exam: normal inspection Respiratory Exam: crackles/rales Cardiovascular Exam: regular rate/rhythm, normal heart sounds Gastrointestinal/Abdomen Exam: soft, normal bowel sounds Extremity Exam: normal inspection Back Exam: normal inspection Male Genitalia Exam: deferred Rectal Exam: deferred OBJECTIVE DATA Vital Signs: Vital Signs - 24 hr Temp Pulse Resp BP Pulse Ox 03/15/23 04:00 97.0 F 77 19 147/82 92 L 03/15/23 01:12 77 18 90 L 03/14/23 23:44 98.0 F 91 H 18 135/67 92 L 03/14/23 20:00 98.3 F 95 H 20 140/66 91 L 03/14/23 18:42 92 H 18 92 L 03/14/23 15:54 98.1 F 88 20 130/68 92 L 03/14/23 12:57 91 H 22 91 L 03/14/23 11:55 97.9 F 79 16 124/58 91 L 03/14/23 06:59 97.6 F 92 H 20 128/61 94 L 03/14/23 06:40 94 H 20 92 L Pain Assessment - Last Documented Pain Intensity 3 Intake and Output: Intake & Output 03/12/23 03/13/23 03/14/23 03/15/23 11:59 11:59 11:59 11:59 Intake Total 1418 2464 700 2400 Output Total 350 2200 1430 2700 Balance 1068 264 -730 -300 Weight 69.5 kg Lab Results: Lab Results-Last 24 Hours 03/14/23 03/14/23 03/14/23 Range/Units 07:11 10:13 11:31 POC Glucometer 252 H 185 H (74 to 106) mg/dL Influenza Type A Ag NEGATIVE (NEGATIVE) Influenza Type B Ag NEGATIVE (NEGATIVE) RSV (PCR) NEGATIVE (NEGATIVE) SARS-CoV-2 (PCR) NEGATIVE (NEGATIVE) 03/14/23 03/14/23 Range/Units 15:35 20:52 POC Glucometer 345 H 296 H (74 to 106) mg/dL Influenza Type A Ag (NEGATIVE) Influenza Type B Ag (NEGATIVE) RSV (PCR) (NEGATIVE) SARS-CoV-2 (PCR) (NEGATIVE) Radiology Exams: Radiology Procedures Category Date Time Status CHEST 1 VIEW (PORTABLE) Routine Exams 03/14/23 05:55 Completed Multi-Disciplinary Progress Notes: Multi-Disciplinary Progress Notes 03/14/23 14:47 Physical Therapy Note by Elliott(Ish#[id number]),Mari PATIENT SEEN ON THIS DATE FOR MOBILITY. PATIENT IN BED HEAD ELEVATED UPON ARRIVAL WITH O2 VIA NASAL CANNULA @ 2L WITH O2 SAT 91%. PATIENT SAT ON EDGE OF BED INDEP. AFTER SITTING UP O2 SAT 89. WORKED WITH PATIENT ON PURSED LIP BREATHING OBSERVED PATIENT MOUTH BREATHING. O2 SAT THEN UP TO 90%. STOOD WITHOUT UE ASSIST DEMONSTRATING GOOD STATIC BALANCE. INITIATED AMBULATION WITH 02 AT 2L WITH ROLLATOR. PATIENT DEMONSTRATING SAFE USE OF DEVICE AND NO LOSS OF BALANCE. AMBULATED 50' INDEP. O2 CHECKED WITH SAT DECREASED TO 87%. INCREASED TO 3L AND WITH DEEP BREATHING EASILY INCREASED TO 90%. AMBULATED 60' AND O2 CHECKED AGAIN DOWN TO 87%. WITH DEEP BREATHING UNABLE TO GET TO 90% SO INCREASED TO 4L FOR THE 40' WALK BACK TO BED AND 02 MAINTAINED 89-90%. ONCE SITTING ON EDGE OF BED DECREASED BACK TO 2L AND PATIENT ABLE TO MAINTAIN SAT 90% OR GREATER. NO DIFFICULTY OR LOSS OF BALANCE WITH AMBULATION. PRIMARY LIMITATION IS RESPIRATORY STATUS. Initialized on 03/14/23 14:47 - END OF NOTE 03/14/23 11:33 Case Management Note by Kelsey Downing S/W PATIENT THIS AM- HE DOES NOT ANTICIPATE NEEDING ANYTHING NEW AT TIME OF DC FAR SERVICES. HE REPORTS HIS IS IN AND OUT DURING THE DAY BUT HIS SON IS THERE AND CAN HELP HIM NEEDED. PATIENT CURRENTLY REQUIRING OXYGEN WHICH IS NEW FOR PATIENT. OXYGEN ORDER FORM GIVEN TO ABBEY BRIZUELA FOR WEEKEND USE IF NEEDED. PATIENT WOULD LIKE TO USE [facility] FOR THIS WELL. ROLLATOR FROM [facility] IS $12. PATIENT IS AGREEABLE TO PAY THIS. MARIELY FROM [facility] REPORTS HE WILL BE DELIVERED THIS AFTERNOON. NO OTHER NEW NEEDS IDENTIFIED AT THIS TIME Initialized on 03/14/23 11:33 - END OF NOTE Assessment/Plan (1) Sepsis Current Visit: Yes Status: Acute Assessment & Plan: (1) Sepsis Current Visit: Yes Status: Acute Assessment & Plan: Secondary to pneumonia most likely -CTA confirmed pneumonia, no PE -blood cultures/urine cult pending -Rocephin/azith started, will continue -Gentle hydration in the setting of CHF 03/13: -Blood and urine culture NGTd -Lactic normal -No longer meets sepsis/sirs criteria (2) COPD exacerbation Current Visit: Yes Status: Acute Assessment & Plan: -Supplemental oxygen with spo2 goal > 92%, RA at baseline, may need home oxygen -Azithromycin/rocephin for secondary bacterial pneumonia -DuoNebs/bronchodilator -RT consult -steroids -Consider pulm consult if no improvement 03/13: -Improving, oxygen requirements now down to 2L, continue to wean -Change steroids to PO -Possible d/c tomorrow 03/14: -Repeat CXR unchanged when compared to CT 03/15: -Qualify for home oxygen -discharge tomorrow Code(s): J44.1 - CHRONIC OBSTRUCTIVE PULMONARY DISEASE W (ACUTE) EXACERBATION (3) Hyponatremia Current Visit: Yes Status: Acute Assessment & Plan: Likely due to hypovolemia and dehydration with oral fluid intake. Received NS in ED and will monitor Na overnight with gentle NS infusion. Oral fluid restriction. 03/13: -Improving, may be secondary to hyperglycemia will continue fluids, and monitoring 03/14: -improved Code(s): E87.1 - HYPO-OSMOLALITY AND HYPONATREMIA (4) Leukocytosis Current Visit: Yes Status: Acute Assessment & Plan: Likely due to pneumonia. Will be on antibiotics. Follow up UA (pending). Abdominal exam is benign; the reported right abdominal pain is likely muscle strain from coughing 03/14: -WBC trending down, will continue abx Code(s): D72.829 - ELEVATED WHITE BLOOD CELL COUNT, UNSPECIFIED (5) Pneumonia -Supplemental oxygen for goal spo2>92% -Ceftriaxone/azithromycin -RA at baseline 03/14: -Qualify for home oxygen -Continue abx/steroids -Repeat cxr today with no change, will add resp. viral panel 03/15: -Resp will negative, MRSA negative -Qualify for home oxygen, home tomorrow #Hyperglycemia -secondary to steroids, will add SSI, should trend down as steroids decrease, will monitor, A1c at 6.17 03/15: -Will need glucometer, strips, lancets and home insulin on discharge (2) COPD exacerbation Current Visit: Yes Status: Acute Code(s): J44.1 - CHRONIC OBSTRUCTIVE PULMONARY DISEASE W (ACUTE) EXACERBATION (3) Hyponatremia Current Visit: Yes Status: Acute Code(s): E87.1 - HYPO-OSMOLALITY AND HYPONATREMIA (4) Leukocytosis Current Visit: Yes Status: Acute Code(s): D72.829 - ELEVATED WHITE BLOOD CELL COUNT, UNSPECIFIED (5) Pneumonia Current Visit: Yes Status: Acute Code(s): J18.9 - PNEUMONIA, UNSPECIFIED ORGANISM (6) Hyperglycemia Current Visit: Yes Status: Acute Code(s): R73.9 - HYPERGLYCEMIA, UNSPECIFIED
[2023-03-15 06:33] LABS: Hematocrit 40.4 % (42-50); Hemoglobin 13.5 g/dL (12.5-18.0); Mean Cell Volume 89.6 fL (78-100); Mean Corpuscular Hemoglobin 29.9 pg (26-32); Mean Corpuscular Hgb Concent. 33.4 g/dL (32-36); Mean Platelet Volume 8.4 fL (7.5-11.0); Platelet Count 564 x10^3/uL (150-450); Red Blood Count 4.51 x10^6/uL (4.1-5.6); Red Cell Distribution Width 12.6 % (11.5-14.0); White Blood Count 16.4 x10^3/uL (4.0-10.5)
[2023-03-15 06:41] LABS: ALBUMIN 3.2 g/dL (3.5-5.0); ANION GAP 8.4 MEQ/L (5-15); BILIRUBIN,TOTAL 0.4 mg/dL (0.2-1.3); Calcium 8.5 mg/dL (8.4-10.2); Creatinine 1 0.62 mg/dL (0.66-1.25); EST GLOMERULAR FILTRATION RATE 106.1 ML/MIN; Potassium 4.7 mmol/L (3.5-5.1)
[2023-03-15] MEDS: HUMALOG SQ PRN ×4 (08:49→22:49)
[2023-03-15] MEDS: ENOXAPARIN SODIUM SQ SCH (10:27)
[2023-03-15] MEDS: Acidophilus TABLET PO SCH (10:27)
[2023-03-15] MEDS: PLAVIX Tablet PO SCH (10:28)
[2023-03-15] MEDS: DELTASONE 20 MG PO SCH ×2 (10:28→22:48)
[2023-03-15] MEDS: MUCINEX DM 600/30MG PO SCH ×2 (10:28→22:48)
[2023-03-15] MEDS: NORVASC 5 MG PO SCH (10:28)
[2023-03-15] MEDS: ECOTRIN 81 MG PO SCH (10:28)
[2023-03-15] MEDS: Nicoderm CQ 21 MG TOP SCH (10:32)
[2023-03-15] MEDS: ROCEPHIN 1 GM / 100 ML NaCl 1 GM/100 ML IVPB IV SCH (20:56)
[2023-03-15] MEDS: DESYREL 50 MG PO SCH (22:48)
[2023-03-15] MEDS: Tums EX 750 MG PO PRN (22:48)
[2023-03-15] MEDS: Zithromax 500 MG/ 250 ML NaCl Premix 500 MG/250 ML IVPB IV SCH (22:50)
[2023-03-16] MEDS: DUONEB 0.5-3 MG/3 ml Neb IH SCH ×3 (01:14→13:28)
--- NOTE | 2023-03-16 05:12 | PCM.DS ---
Discharge Summary Date of Admission: 03/13/23 05:20 Date of Discharge: 03/16/23 Admitting Physician: QING MOREJON MD Primary Care Provider: RIC,PERLA Allergies Allergies acetaminophen [From Vicodin] Allergy (Severe, Verified 03/11/23 17:05) Rash hydrocodone [From Vicodin] Allergy (Severe, Verified 03/11/23 17:05) Rash oxycodone [From Percocet] Allergy (Severe, Verified 03/11/23 17:05) Rash Sulfa (Sulfonamide Antibiotics) Allergy (Severe, Verified 03/11/23 17:05) Rash Hospital Summary - Hospital Course Hospital Course: is a 63 year old male (with a history of COPD x 5 years but not on home oxygen, and a history of a solitary kidney) who presented to ED 03/11/23 with complaints of dyspnea and cough for the past several days. No reports of fever or hemoptysis. He also reported right sided abdominal pain which began after coughing. He has experienced nausea and vomiting (no diarrhea) and has been drinking a significant amount of water. He presented to his PCP office and was noted to be hypoxic, so he was sent to the ED where spo2 was noted at 77% pm RA. Patient was placed on 6L with noted improvement of spo2 @ 96%. In the ED the patient was also found to have an elevated temperature (100.4 F). Lab findings were remarkable for leukocytosis with WBC at 19.2, BNP 1300,didmer at 2.19, hyponatremia with sodium at 122. CTA chest negative for PE however bilateral pneumonia observed. Patient admitted with respiratory failure with hypoxia with sepsis secondary to pneumonia/copd exacerbation and hyponatremia. Treatment with Rocephin/azithromycin during hospitalization. Dyspnea and cough have improved. Labs have stabilized. Patient is qualified for home oxygen. He will discharge today on abx/steroids/metformin -(hyperglycemia secondary to steroids). Patient provided diabetic education. Will need to get glucometer/strips/lancets, advised [employer] meters for $10 strips $10. Advised to check blood glucose levels ACHS a nd before bedtime. Follow up with PCP next week. New Diagnosis:Sepsis 2/2 bilateral pneumonia/copd exac New Medications:Cefpodoxime/prednisone/metformin/nicotine patch Follow Up: PCP Latest Assessment & Plan (1) Sepsis Current Visit: Yes Status: Acute Assessment & Plan: Secondary to pneumonia most likely -CTA confirmed pneumonia, no PE -blood cultures/urine cult pending -Rocephin/azith started, will continue -Gentle hydration in the setting of CHF 03/13: -Blood and urine culture NGTd -Lactic normal -No longer meets sepsis/sirs criteria (2) COPD exacerbation Current Visit: Yes Status: Acute Assessment & Plan: -Supplemental oxygen with spo2 goal > 92%, RA at baseline, may need home oxygen -Azithromycin/rocephin for secondary bacterial pneumonia -DuoNebs/bronchodilator -RT consult -steroids -Consider pulm consult if no improvement 03/13: -Improving, oxygen requirements now down to 2L, continue to wean -Change steroids to PO -Possible d/c tomorrow 03/14: -Repeat CXR unchanged when compared to CT 03/15: -Qualify for home oxygen -discharge tomorrow Code(s): J44.1 - CHRONIC OBSTRUCTIVE PULMONARY DISEASE W (ACUTE) EXACERBATION (3) Hyponatremia Current Visit: Yes Status: Acute Assessment & Plan: Likely due to hypovolemia and dehydration with oral fluid intake. Received NS in ED and will monitor Na overnight with gentle NS infusion. Oral fluid restriction. 03/13: -Improving, may be secondary to hyperglycemia will continue fluids, and monitori ng 03/14: -improved Code(s): E87.1 - HYPO-OSMOLALITY AND HYPONATREMIA (4) Leukocytosis Current Visit: Yes Status: Acute Assessment & Plan: Likely due to pneumonia. Will be on antibiotics. Follow up UA (pending). Abdominal exam is benign; the reported right abdominal pain is likely muscle strain from coughing 03/14: -WBC trending down, will continue abx Code(s): D72.829 - ELEVATED WHITE BLOOD CELL COUNT, UNSPECIFIED (5) Pneumonia -Supplemental oxygen for goal spo2>92% -Ceftriaxone/azithromycin -RA at baseline 03/14: -Qualify for home oxygen -Continue abx/steroids -Repeat cxr today with no change, will add resp. viral panel 03/15: -Resp will negative, MRSA negative -Qualify for home oxygen, home tomorrow #Hyperglycemia -secondary to steroids, will add SSI, should trend down as steroids decrease, will monitor, A1c at 6.17 03/15: -Will need glucometer, strips, lancets and home insulin on discharge I spent 35 minutes [id number] with the patient on the day of discharge performing discharge exam, discussing hospital stay and discharge instructions with patient and caregivers, preparation of discharge records, prescriptions & referral forms and addressing any questions/concerns the patient had as documented above. - Vitals & Intake/Output Vital Signs: Vital Signs Temperature 96.9 F 03/16/23 04:00 Pulse Rate 76 03/16/23 04:00 Respiratory Rate 20 03/16/23 04:00 Blood Pressure 150/68 03/16/23 04:00 O2 Sat by Pulse Oximetry 92 L 03/16/23 04:00 Intake & Output: Intake & Output 03/13/23 03/14/23 03/15/23 03/16/23 11:59 11:59 11:59 11:59 Intake Total 2464 700 2520 1720 Output Total 2200 1430 2700 Balance 264 -730 -180 1720 - Lab Result Diagrams: 03/16/23 06:02 03/16/23 06:02 Lab Results-Last 24 Hrs: Lab Results-Last 24 Hours 03/15/23 03/15/23 03/15/23 Range/Units 06:06 06:06 07:24 WBC 16.4 H (4.0-10.5) x10^3/uL RBC 4.51 (4.1-5.6) x10^6/uL Hgb 13.5 (12.5-18.0) g/dL Hct 40.4 L (42-50) % MCV 89.6 (78-100) fL MCH 29.9 (26-32) pg MCHC 33.4 (32-36) g/dL RDW 12.6 (11.5-14.0) % Plt Count 564 H (150-450) x10^3/uL MPV 8.4 (7.5-11.0) fL Sodium 131 L (137-145) mmol/L Potassium 4.7 (3.5-5.1) mmol/L Chloride 100 (98-107) mmol/L Carbon Dioxide 27 (22-30) mmol/L Anion Gap 8.4 (5-15) MEQ/L BUN 14 (9-20) mg/dL Creatinine 0.62 L (0.66-1.25) mg/dL Estimated GFR 106.1 ML/MIN Glucose 231 H (74-106) mg/dL POC Glucometer 252 H (74 to 106) mg/dL Calcium 8.5 (8.4-10.2) mg/dL Total Bilirubin 0.40 (0.2-1.3) mg/dL AST 28 (17-59) U/L ALT 33 (0-50) U/L Alkaline Phosphatase 117 (38-126) U/L Serum Total Protein 6.0 L (6.3-8.2) g/dL Albumin 3.2 L (3.5-5.0) g/dL 03/15/23 03/15/23 03/15/23 Range/Units 11:52 16:34 21:09 WBC (4.0-10.5) x10^3/uL RBC (4.1-5.6) x10^6/uL Hgb (12.5-18.0) g/dL Hct (42-50) % MCV (78-100) fL MCH (26-32) pg MCHC (32-36) g/dL RDW (11.5-14.0) % Plt Count (150-450) x10^3/uL MPV (7.5-11.0) fL Sodium (137-145) mmol/L Potassium (3.5-5.1) mmol/L Chloride (98-107) mmol/L Carbon Dioxide (22-30) mmol/L Anion Gap (5-15) MEQ/L BUN (9-20) mg/dL Creatinine (0.66-1.25) mg/dL Estimated GFR ML/MIN Glucose (74-106) mg/dL POC Glucometer 170 H 388 H 276 H (74 to 106) mg/dL Calcium (8.4-10.2) mg/dL Total Bilirubin (0.2-1.3) mg/dL AST (17-59) U/L ALT (0-50) U/L Alkaline Phosphatase (38-126) U/L Serum Total Protein (6.3-8.2) g/dL Albumin (3.5-5.0) g/dL Micro Results-Entire Visit: Microbiology 03/12/23 01:00 Urine Culture - Final Urine, Void NO GROWTH 03/11/23 17:53 Blood Culture - Preliminary Blood 03/11/23 18:00 Blood Culture - Preliminary Blood Accuchecks Date 03/15/23 Date 03/15/23 Date 03/15/23 Time 16:47 Time 12:43 Time 07:39 - Radiology Exams Ordered Rad Exams-Entire Visit: Radiology Procedures Category Date Time Status CHEST 1 VIEW (PORTABLE) Routine Exams 03/14/23 05:55 Completed - Procedures and Test Procedures and Tests throughout Hospitalization: Therapy Orders & Screens 03/11/23 17:52 Respiratory Therapy Assessment DAILY Comment: 03/11/23 22:52 PT Eval & Treat ( Order) ONCE Reason for Eval:: please assess ambulatory oxygen needs Diagnosis: Pneumonia, COPD exacerbation 03/12/23 01:24 Oxygen Oxymask LPM 6 lpm Comment: Diagnosis: Pneumonia, COPD exacerbation 03/13/23 06:55 Incentive Spirometry UD Comment: Diagnosis: Pneumonia, COPD exacerbation Oxygen Nasal Cannula 3 lpm Comment: Diagnosis: Pneumonia, COPD exacerbation Discharge Exam General Appearance: no apparent distress Neurologic Exam: alert, oriented x 3, cooperative Eye Exam: PERRL Ears, Nose, Throat Exam: normal ENT inspection Neck Exam: normal inspection Respiratory Exam: diminished breath sounds Cardiovascular Exam: regular rate/rhythm, normal heart sounds Gastrointestinal/Abdomen Exam: soft, normal bowel sounds Male Genitalia Exam: deferred Rectal Exam: deferred Back Exam: normal inspection Extremity Exam: normal inspection Skin Exam: normal color Final Diagnosis/Problem List - Final Discharge Diagnosis/Problem (1) Sepsis Current Visit: Yes Status: Acute (2) COPD exacerbation Current Visit: Yes Status: Acute Code(s): J44.1 - CHRONIC OBSTRUCTIVE PULMONARY DISEASE W (ACUTE) EXACERBATION (3) Hyponatremia Current Visit: Yes Status: Acute Code(s): E87.1 - HYPO-OSMOLALITY AND HYPONATREMIA (4) Leukocytosis Current Visit: Yes Status: Acute Code(s): D72.829 - ELEVATED WHITE BLOOD CELL COUNT, UNSPECIFIED (5) Pneumonia Current Visit: Yes Status: Acute Code(s): J18.9 - PNEUMONIA, UNSPECIFIED ORGANISM (6) Hyperglycemia Current Visit: Yes Status: Acute Code(s): R73.9 - HYPERGLYCEMIA, UNSPECIFIED - Discharge Disposition: Home, Self-Care Condition: Stable Prescriptions: New Benzonatate 100 mg PO TIDPRN 30 Days #30 cap Metformin HCl 500 mg [Glucophage 500 MG] 500 mg PO BIDWM 14 Days #28 tablet Methylprednisolone Packet [Medrol Dosepack] 4 mg PO UD #30 packet Nicotine 21 mg [Nicoderm CQ 21 MG] 21 mg TOP Q24H 42 Days #42 patch Cefpodoxime Proxetil 200 mg [Vantin 200 mg] 200 mg PO BID 5 Days #10 tablet Continue Aspirin 81 gm Chew [Baby Aspirin 81 mg Chew] 81 mg PO DAILY Clopidogrel Bisulfate [Clopidogrel] 75 mg PO DAILY Amlodipine Besylate 5 mg [Norvasc 5 mg] 10 mg PO DAILY Follow up with: PERLA LARIOS MD [Primary Care Provider] - 03/21/23 2:45 pm ([facility])
[2023-03-16 06:23] LABS: Hematocrit 43.8 % (42-50); Hemoglobin 14.2 g/dL (12.5-18.0); Mean Cell Volume 90.1 fL (78-100); Mean Corpuscular Hemoglobin 29.2 pg (26-32); Mean Corpuscular Hgb Concent. 32.4 g/dL (32-36); Mean Platelet Volume 8.4 fL (7.5-11.0); Platelet Count 533 x10^3/uL (150-450); Red Blood Count 4.86 x10^6/uL (4.1-5.6); Red Cell Distribution Width 12.5 % (11.5-14.0); White Blood Count 19.7 x10^3/uL (4.0-10.5)
[2023-03-16 06:33] LABS: ALBUMIN 3.4 g/dL (3.5-5.0); ANION GAP 11.4 MEQ/L (5-15); BILIRUBIN,TOTAL 0.4 mg/dL (0.2-1.3); Calcium 8.9 mg/dL (8.4-10.2); Creatinine 1 0.67 mg/dL (0.66-1.25); EST GLOMERULAR FILTRATION RATE 103.6 ML/MIN; Potassium 4.5 mmol/L (3.5-5.1); Total Protein 6.2 g/dL (6.3-8.2)
[2023-03-16] MEDS: HUMALOG SQ PRN (08:13)
[2023-03-16] MEDS: Acidophilus TABLET PO SCH (10:22)
[2023-03-16] MEDS: DELTASONE 20 MG PO SCH (10:22)
[2023-03-16] MEDS: MUCINEX DM 600/30MG PO SCH (10:22)
[2023-03-16] MEDS: ENOXAPARIN SODIUM SQ SCH (10:22)
[2023-03-16] MEDS: ECOTRIN 81 MG PO SCH (10:22)
[2023-03-16] MEDS: PLAVIX Tablet PO SCH (10:23)
[2023-03-16] MEDS: NORVASC 5 MG PO SCH (10:23)
[2023-03-16] MEDS: Nicoderm CQ 21 MG TOP SCH (10:23)
[2023-03-16 13:14] VITALS: BP 152/76; PULSE 92; RESP 19; TEMP 97.7; O2SAT 93
== END 2023-03-16 13:27 | disposition home or self-care (01) | DRG 871 ==
LOC: ED 16:53 → MED SURG 22:17 → OBSVTOIN 03-13 05:20
PROVIDERS: ADMIT Internal Medicine; ATTEND Internal Medicine
DX: A41.9 Sepsis, unspecified organism (principal); J18.9 Pneumonia, unspecified organism; J44.1 Chronic obstructive pulmonary disease with (acute) exacerbation; E87.1 Hypo-osmolality and hyponatremia; D72.829 Elevated white blood cell count, unspecified; F17.200 Nicotine dependence, unspecified, uncomplicated; R73.9 Hyperglycemia, unspecified; I25.2 Old myocardial infarction; Z79.899 Other long term (current) drug therapy; Z20.828 Contact with and (suspected) exposure to other viral communicable diseases
CPT/HCPCS: 0241U; 36000; 36415; 71045; 71260; 80048; 80053; 81001; 82947; 83036; 83605; 83880; 84484; 85025; 85027; 85379; 87040; 87086; 87641; 93005; 93041; 93268; 94640; 94760; 94762; 96374; 97161; 99285; G0378; Q3014; J0456; J0696; J1650; J1817; J2920; J2930; A9270-GY